=== PATIENT | male | born 1955 | race Caucasian/White ===

== ENCOUNTER 2022-03-18 10:29 | Day surgery (SDC) | payer MEDICARE, MEDICAID ==
[~2022-03-18] VITALS: Ht 182.9 cm; Wt 139.6 kg
[~2022-03-18 10:29] MED LIST: ADV50250 IH; ALB0.5UD IH; ALBU8.5H4 IH; ATEN-169 PO; DEXL60CA3 PO; DIPH25CA83 PO; DOXY100T2 PO; GEMF600T89 PO; HYDR-3965 PO; LACT1CAP65 PO; LEVO100T PO; LORA1TAB PO; METF-436 PO; TRAM50TA2 PO
[2022-03-18 11:00] VITALS: BP 165/91
[2022-03-18] MEDS ORDERED: NITR0.4T48 SL (11:36)
[2022-03-18] MEDS ORDERED: DULA1.5P (11:37)
[2022-03-18] MEDS ORDERED: HYDR-3972 PO (11:38)
[2022-03-18] MEDS ORDERED: LOP12.5T PO (11:39)
[2022-03-18] MEDS ORDERED: SITA1TAB6 PO (11:39)
[2022-03-18] MEDS ORDERED: LISI10TA27 PO (11:40)
[2022-03-18] MEDS ORDERED: ALLO300T35 PO (11:40)
[2022-03-18] MEDS ORDERED: MIDAZolam 1 MG/ML 5ML VIAL ONE (12:01)
[2022-03-18] MEDS ORDERED: fentaNYL/PF 50MCG/1 ML 2ML syringe ONE (12:01)
[2022-03-18 14:10] VITALS: BP 119/71
[2022-03-18 14:20] VITALS: BP 115/91
[2022-03-18 14:30] VITALS: BP 164/80
== END 2022-03-18 15:05 | disposition home or self-care (01) ==
LOC: GI LAB 10:29
PROVIDERS: ATTEND Internal Medicine Gastroenterology
DX: Z12.11 Encounter for screening for malignant neoplasm of colon (principal); D12.2 Benign neoplasm of ascending colon; D12.0 Benign neoplasm of cecum; D12.3 Benign neoplasm of transverse colon; D12.5 Benign neoplasm of sigmoid colon; D12.8 Benign neoplasm of rectum; K57.30 Diverticulosis of large intestine without perforation or abscess without bleeding; K64.8 Other hemorrhoids; J44.9 Chronic obstructive pulmonary disease, unspecified; I10 Essential (primary) hypertension; Z86.010 Personal history of colon polyps; Z79.899 Other long term (current) drug therapy
CPT/HCPCS: 45380; 45385; 45390; 88305; 99153; C1773; G0500; J2250; J3010; J7030; Z7512; 45335; 99152; A4620

== ENCOUNTER 2022-04-26 15:59 | Inpatient (IN) | payer MEDICARE, MEDICAID ==
[~2022-04-26] VITALS: Ht 180.3 cm; Wt 139.5 kg
[~2022-04-26 15:59] MED LIST changes: +ALLO300T35 PO; -ATEN-169 PO; -DIPH25CA83 PO; -DOXY100T2 PO; +DULA1.5P SQ; -HYDR-3965 PO; +HYDR-3972 PO; -LACT1CAP65 PO; -LEVO100T PO; +LISI10TA27 PO; +LOP12.5T PO; -METF-436 PO; +NITR0.4T48 SL; +SITA1TAB6 PO; -TRAM50TA2 PO; +iohexol 350MG/ML 100ml bottle IV ONE
[2022-04-26 16:21] LABS: BASOPHILS % (AUTO) 0.6 % (0-1); EOSINOPHILS % (AUTO) 0.9 % (0-6); HEMATOCRIT 34.6 % (42.0-52.0); HEMOGLOBIN 11.6 g/dl (14.0-17.9); LYMPHOCYTES # (AUTO) 0.5 X10'3 (1.1-4.8); LYMPHOCYTES % (AUTO) 13.4 % (21-51); MEAN CORPUSCULAR HEMOGLOBIN 31.6 PG (27.0-31.0); MEAN CORPUSCULAR HGB CONC 33.7 g/dL (33.0-36.5); MEAN CORPUSCULAR VOLUME 93.8 FL (78-98); MEAN PLATELET VOLUME 8.1 FL (7.4-10.4); MONOCYTES # (AUTO) 0.5 X10'3 (0-0.9); MONOCYTES % (AUTO) 14.7 % (2-12); NEUTROPHILS # (AUTO) 2.6 X10'3 (1.8-7.7); NEUTROPHILS % (AUTO) 70.4 % (42-75); PLATELET COUNT 121 X10'3 (140-440); RED BLOOD COUNT 3.68 X10'6 (4.70-6.10); RED CELL DISTRIBUTION WIDTH 15.2 % (11.5-14.5); WHITE BLOOD COUNT 3.7 X10'3 (4.5-11.0)
[2022-04-26 16:33] LABS: ALANINE AMINOTRANSFERASE 61 U/L (12-78); ALBUMIN 3.5 G/DL (3.4-5.0); ALBUMIN/GLOBULIN RATIO 0.9 (1.1-1.5); ALKALINE PHOSPHATASE 168 IU/L (46-116); ANION GAP 10 (8-16); ASPARTATE AMINO TRANSFERASE 75 U/L (10-37); BILIRUBIN,TOTAL 0.9 MG/DL (0.1-1.0); BLOOD UREA NITROGEN 10 MG/DL (7-18); BUN/CREATININE RATIO 8.8 (5.4-32.0); CHLORIDE 101 MMOL/L (99-107); CREATININE 1.13 MG/DL (0.60-1.10); GLUCOSE 185 MG/DL (70-104); POTASSIUM 3.8 MMOL/L (3.5-5.1); SODIUM 134 MMOL/L (135-145); TOTAL CARBON DIOXIDE 22.7 MMOL/L (24-32); TOTAL PROTEIN 7.5 G/DL (6.4-8.2); eGFR 65 ML/MIN
[2022-04-26] MEDS ORDERED: normal saline 1000ML IV soln IV ONE (17:35)
[2022-04-26 18:18] LABS: D-DIMER 2.12 MG/L FEU (0-0.50)
[2022-04-26] MEDS ORDERED: MESSAGE TO NURSING PO NR (20:00)
--- NOTE | 2022-04-26 20:38 | NUR ---
PT WAS ROAD TESTED WITH SPO2 MONITOR. PT REPORTED FEELING SOB. SPO2 REMAINED AT 97% AND ABOVE ON RA WHILE WALKING. DR DONOVAN AWARE.
--- NOTE | 2022-04-26 21:29 | NUR ---
ROUNDED ON PT. HE REPORTS FEELING BETTER.
--- NOTE | 2022-04-26 22:47 | NUR ---
PT REQUESTED A WARM BLANKET. PT HAS DONNED HOSPITAL GOWN AND HAS NO COMPLAINTS.
[2022-04-26] MEDS ORDERED: HYDROcodone/acetaminophen 10/325mg tab PO ONE (23:30)
--- NOTE | 2022-04-26 23:31 | NUR ---
SPOKE TO DR SANCHEZ OVER THE PHONE PT IS REQUESTING PAIN MEDS. DR SANCHEZ GAVE T.O. FOR 10 MG NORCO. ORDER REPEATED BACK FOR ACCURACY AND PLACED.
--- NOTE | 2022-04-26 23:52 | NUR ---
RELIEVING RN FOR BREAK, PT IS RESTING QUIETLY ON GURNEY, RESP EVEN AND UNLABORED, WAITING FOR BED ASSIGNMENT AND ADMIT ORDERS, MEDICATED FOR CHRONIC LOWER BACK PAIN THAT RADIATES TO BILATERAL LEGS, GAVE PT PITCHER OF ICE WATER, EMPTIED URINAL OF 800ML YELLOW URINE
[2022-04-26] MEDS ORDERED: dextrose 50%-water 50ml dispensing syringe IV PRN ×2 (23:55)
[2022-04-26] MEDS ORDERED: mag hydrox/Alum hydrox/simeth 30ml oral suspension PO PRN (23:55)
[2022-04-26] MEDS ORDERED: glucagon, human recombinant 1mg kit SUBCUT PRN (23:55)
[2022-04-26] MEDS ORDERED: diphenhydrAMINE 50 mg/ml inj IV PRN (23:55)
[2022-04-26] MEDS ORDERED: ondansetron 4mg rapidly disintigrating tab PO PRN (23:55)
[2022-04-26] MEDS ORDERED: MESSAGE TO PHARMACY PO ONE (23:55)
[2022-04-26] MEDS ORDERED: acetaminophen 650mg rectal suppository RC PRN (23:55)
[2022-04-26] MEDS ORDERED: diphenhydrAMINE 25mg capsule PO PRN (23:55)
[2022-04-26] MEDS ORDERED: DEXTROSE 15 GM of carb/4 tabs (each vial/BOTTLE has 4 tablets) PO PRN ×2 (23:55)
[2022-04-26] MEDS ORDERED: bisacodyl 10mg suppository rectal RC PRN (23:55)
[2022-04-26] MEDS ORDERED: morphine 2 MG/ML inj. syringe IV PRN ×2 (23:55)
[2022-04-26] MEDS ORDERED: magnesium hydroxide 30ml (MOM) UD suspension PO PRN (23:55)
[2022-04-26] MEDS ORDERED: ondansetron/PF 4mg/2ml inj IV PRN (23:55)
[2022-04-26] MEDS ORDERED: HYDROmorphone inj. 0.5 MG/0.5 ML DISP.SYRIN IV PRN (23:55)
[2022-04-26] MEDS ORDERED: acetaminophen 325mg tablet PO PRN ×2 (23:55)
[2022-04-27] MEDS ORDERED: ALBUTEROL INHALER 1 PUFF/90 MCG INHALation IH PRN ×2 (00:15→04:40)
[2022-04-27 00:31] LABS: HEMOGLOBIN A1C 7.7 % (4.5-6.2)
[2022-04-27 00:45] LABS: MAGNESIUM 1.6 MG/DL (1.5-2.4); PHOSPHORUS 3.1 MG/DL (2.3-4.5)
[2022-04-27] MEDS ORDERED: guaiFENesin/codeine phos 10ml UD oral syrup PO PRN (01:35)
--- NOTE | 2022-04-27 01:37 | NUR ---
SPOKE TO DR SANCHEZ PT IS REQUESTING COUGH MEDICATION THE COUGH IS NOW CAUSING RIB PAIN. DR SANCHEZ GAVE T.O. FOR ROBITUSSIN AC 15 ML Q4 PRN FOR COUGH. ORDER REPEATED BACK FOR ACCURACY AND PLACED,.
[2022-04-27 02:30] LABS: BASOPHILS % (AUTO) 0.3 % (0-1); EOSINOPHILS % (AUTO) 0.5 % (0-6); HEMATOCRIT 32.9 % (42.0-52.0); HEMOGLOBIN 11.2 g/dl (14.0-17.9); LYMPHOCYTES # (AUTO) 0.7 X10'3 (1.1-4.8); LYMPHOCYTES % (AUTO) 21.5 % (21-51); MEAN CORPUSCULAR HEMOGLOBIN 32.4 PG (27.0-31.0); MEAN CORPUSCULAR HGB CONC 34.1 g/dL (33.0-36.5); MEAN CORPUSCULAR VOLUME 94.9 FL (78-98); MEAN PLATELET VOLUME 8.3 FL (7.4-10.4); MONOCYTES # (AUTO) 0.5 X10'3 (0-0.9); MONOCYTES % (AUTO) 16.5 % (2-12); NEUTROPHILS # (AUTO) 1.9 X10'3 (1.8-7.7); NEUTROPHILS % (AUTO) 61.2 % (42-75); PLATELET COUNT 108 X10'3 (140-440); RED BLOOD COUNT 3.46 X10'6 (4.70-6.10); RED CELL DISTRIBUTION WIDTH 15.6 % (11.5-14.5); WHITE BLOOD COUNT 3.2 X10'3 (4.5-11.0)
[2022-04-27 02:40] LABS: APTT 35 SECONDS (22-32); D-DIMER 1.71 MG/L FEU (0-0.50)
[2022-04-27 02:51] LABS: ALBUMIN 3.3 G/DL (3.4-5.0); ANION GAP 8 (8-16); BILIRUBIN,TOTAL 0.8 MG/DL (0.1-1.0); BLOOD UREA NITROGEN 9 MG/DL (7-18); BUN/CREATININE RATIO 8.8 (5.4-32.0); C-REACTIVE PROTEIN 2.16 MG/DL (0.0-0.5); CALCIUM 8.7 MG/DL (8.5-10.1); CHLORIDE 105 MMOL/L (99-107); CREATININE 1.02 MG/DL (0.60-1.10); GLUCOSE 152 MG/DL (70-104); POTASSIUM 4.1 MMOL/L (3.5-5.1); SODIUM 138 MMOL/L (135-145); TOTAL CARBON DIOXIDE 25.3 MMOL/L (24-32); TOTAL PROTEIN 7.1 G/DL (6.4-8.2); eGFR 73 ML/MIN
[2022-04-27 02:52] LABS: ALANINE AMINOTRANSFERASE 84 U/L (12-78); ALBUMIN/GLOBULIN RATIO 0.9 (1.1-1.5); ALKALINE PHOSPHATASE 140 IU/L (46-116); ASPARTATE AMINO TRANSFERASE 76 U/L (10-37); CHOL/HDL RATIO 4.2 (0.00-4.99); CHOLESTEROL 172 MG/DL (0-200); HDL CHOLESTEROL 41 MG/DL (35-60); LDL CHOLESTEROL 107 MG/DL (50-100); LIPASE 105 U/L (73-393); TRIGLYCERIDES 89 MG/DL (20-135)
--- NOTE | 2022-04-27 03:39 | NUR ---
SPOKE TO DR SANCHEZ PT REQUESTED A CPAP TO SLEEP HE USUALLY USES ONE AT NIGHT FOR HIS SLEEP APNEA.
--- NOTE | 2022-04-27 04:00 | NUR ---
RT SETTING UP CPAP FOR PT;
[2022-04-27 04:26] LABS: URINE AMPHETAMINE SCREEN NEGATIVE (Neg); URINE BARBITUATE SCREEN NEGATIVE (Neg); URINE BENZODIAZEPINES SCREEN NEGATIVE (Neg); URINE CANNABINOID SCREEN NEGATIVE (Neg); URINE COCAINE SCREEN NEGATIVE (Neg); URINE METHADONE SCREEN NEGATIVE (Neg); URINE OPIATE SCREEN POSITIVE (Neg); URINE PHENCYCLIDINE SCREEN NEGATIVE (Neg)
--- NOTE | 2022-04-27 04:32 | NUR ---
SPOKE TO DR SANCHEZ PT'S BP IS STARTING TO TREND UP AND PT NOTED HE WASN'T ABLE TO TAKE HIS NORMAL NIGHT TIME MEDS HE IS IN THE HOSPITAL. MED RECONCILIATION IS COMPLETE. DR SANCHEZ REPORTED HE WILL GO OVER PT'S MEDICATIONS AND PLACE ORDERS.
[2022-04-27] MEDS ORDERED: LORazepam 1 MG tablet PO PRN (04:40)
--- NOTE | 2022-04-27 06:39 | NUR ---
RN REMOVED THIS PATIENT'S CPAP MASK AT PT'S REQUEST. HE IS NOW ON ROOM AIR, 02 SAT IS 100%. IN NO FORM OF DISTRESS. DR SOTO MADE AWARE OF PT'S ELEVATED BP. HE IS DUE FOR SOME AM MEDS. WILL ADMINST CRUZITO. MONITORING ONGOING
[2022-04-27] MEDS: gemfibrozil 600mg tablet PO SCH ×2 (08:00→21:58)
[2022-04-27] MEDS: furosemide 10 MG/1 ML 10ml inj IV SCH (09:28)
[2022-04-27] MEDS: azithromycin/NS 500mg/250ml 250 ML IV SCH (09:29)
[2022-04-27] MEDS: allopurinol 300 MG tablet PO SCH (09:29)
[2022-04-27] MEDS: docusate sod 100mg capsule PO SCH ×2 (09:29→21:59)
[2022-04-27] MEDS: dexamethasone 4mg/ml inj IV SCH ×2 (09:29→21:59)
[2022-04-27] MEDS: enoxaparin 40mg/0.4ml syringe SUBCUT SCH ×2 (09:29→22:00)
[2022-04-27] MEDS: CefTRIAXone/D5W-Rocephin 1gm 50 ML IV SCH (09:30)
[2022-04-27] MEDS: metoprolol tartrate 25mg tablet PO SCH ×2 (09:40→21:59)
[2022-04-27] MEDS: pantoprazole 40mg Tablet.DR PO SCH (09:40)
[2022-04-27] MEDS: lisinopril 10 MG tablet PO SCH (09:40)
[2022-04-27] MEDS: MESSAGE TO NURSING PO SCH (09:41)
--- NOTE | 2022-04-27 10:50 | NUR ---
THIS IS MY 3RD CALL TO PCU TO GIVE REPORT ON PT TRANSFER TO 3009, "PRIMARY RN IS BUSY WITH MD AND WILL CALL ME BACK".
--- NOTE | 2022-04-27 11:19 | NUR ---
Student documentation: I have reviewed and agree with all interventions, assessments performed and documented by MILAD FELIPE.
[2022-04-27 12:30] VITALS: BP 158/77
--- NOTE | 2022-04-27 18:30 | NUR ---
Patient in room PCU 3009. I have received report from ASHLEE and had the opportunity to ask questions and assume patient care.
--- NOTE | 2022-04-27 18:40 | NUR ---
Problems reprioritized. Patient report given, questions answered & plan of care reviewed with MILAD ALLEN.
[2022-04-27 19:00] VITALS: BP 139/68
[2022-04-27] MEDS: insulin Lispro (HumaLOG) vial - multi-dose SQ SCH (19:14)
[2022-04-27] MEDS ORDERED: insulin glargine (Lantus) pen - multi-dose SQ SCH (21:00)
--- NOTE | 2022-04-27 21:56 | NUR ---
AMMENDMENT TO LANTUS DOCUMENTATION: BLOOD GLUCOSE 206, NOT 205.
[2022-04-27 22:00] VITALS: BP 161/79
[2022-04-28 03:00] VITALS: BP 132/83
--- NOTE | 2022-04-28 06:20 | NUR ---
Problems reprioritized. Patient report given, questions answered & plan of care reviewed with KARON.
--- NOTE | 2022-04-28 06:26 | NUR ---
Patient in room PCU 3009. I have received report from Nighat STINSON and had the opportunity to ask questions and assume patient care.
[2022-04-28 06:38] LABS: BASOPHILS % (AUTO) 0.3 % (0-1); EOSINOPHILS % (AUTO) 0 % (0-6); HEMOGLOBIN 12.5 g/dl (14.0-17.9); LYMPHOCYTES # (AUTO) 0.7 X10'3 (1.1-4.8); LYMPHOCYTES % (AUTO) 18.6 % (21-51); MEAN CORPUSCULAR HEMOGLOBIN 32.1 PG (27.0-31.0); MEAN CORPUSCULAR HGB CONC 33.6 g/dL (33.0-36.5); MEAN CORPUSCULAR VOLUME 95.5 FL (78-98); MEAN PLATELET VOLUME 7.9 FL (7.4-10.4); MONOCYTES # (AUTO) 0.2 X10'3 (0-0.9); NEUTROPHILS # (AUTO) 2.6 X10'3 (1.8-7.7); NEUTROPHILS % (AUTO) 74.1 % (42-75); PLATELET COUNT 111 X10'3 (140-440); RED BLOOD COUNT 3.88 X10'6 (4.70-6.10); RED CELL DISTRIBUTION WIDTH 15.4 % (11.5-14.5); WHITE BLOOD COUNT 3.5 X10'3 (4.5-11.0)
[2022-04-28 06:57] LABS: ALANINE AMINOTRANSFERASE 90 U/L (12-78); ALBUMIN 3.5 G/DL (3.4-5.0); ALBUMIN/GLOBULIN RATIO 0.8 (1.1-1.5); ALKALINE PHOSPHATASE 133 IU/L (46-116); ANION GAP 10 (8-16); ASPARTATE AMINO TRANSFERASE 77 U/L (10-37); BILIRUBIN,TOTAL 0.8 MG/DL (0.1-1.0); BLOOD UREA NITROGEN 13 MG/DL (7-18); BUN/CREATININE RATIO 13.8 (5.4-32.0); CALCIUM 9.1 MG/DL (8.5-10.1); CHLORIDE 103 MMOL/L (99-107); CREATININE 0.94 MG/DL (0.60-1.10); GLUCOSE 213 MG/DL (70-104); POTASSIUM 4.1 MMOL/L (3.5-5.1); SODIUM 139 MMOL/L (135-145); TOTAL CARBON DIOXIDE 26.1 MMOL/L (24-32); eGFR 81 ML/MIN
[2022-04-28 07:01] VITALS: BP 130/62
[2022-04-28] MEDS: enoxaparin 40mg/0.4ml syringe SUBCUT SCH (08:00)
--- NOTE | 2022-04-28 09:56 | NUR ---
Diabetes consult: Pt w/ hx of DM A1c 7.7 though pt currently on Covid isolation. Written DM ed w/ RD contact info placed in pt chart. Pt admitted w/ sepsis and Covid per EMR. Currently on Carb control/Heart Healthy diet w/ 85% intake of first meal and 100% intake of second meal. Will provide double protein BID for satiety. LBM 8/5 receiving routine colace. Will continue to monitor. Recs; 1. Continue Carb control/Heart Healthy diet as tolerated 2. Double protein BIDBD 3. Bowel care per rx 4. Scaled wts Addendum: 04/28/22 at [address] Amended: Links added.
[2022-04-28] MEDS: MESSAGE TO NURSING PO SCH (10:00)
[2022-04-28] MEDS: insulin Lispro (HumaLOG) vial - multi-dose SQ SCH (10:23)
[2022-04-28] MEDS: CefTRIAXone/D5W-Rocephin 1gm 50 ML IV SCH (10:26)
[2022-04-28] MEDS: azithromycin/NS 500mg/250ml 250 ML IV SCH (10:27)
[2022-04-28] MEDS: lisinopril 10 MG tablet PO SCH (10:28)
[2022-04-28] MEDS: pantoprazole 40mg Tablet.DR PO SCH (10:28)
[2022-04-28 10:29] VITALS: BP_SYST 130
[2022-04-28] MEDS: metoprolol tartrate 25mg tablet PO SCH (10:29)
[2022-04-28] MEDS: docusate sod 100mg capsule PO SCH (10:29)
[2022-04-28] MEDS: allopurinol 300 MG tablet PO SCH (10:29)
[2022-04-28] MEDS: gemfibrozil 600mg tablet PO SCH (10:32)
[2022-04-28] MEDS: dexamethasone 4mg/ml inj IV SCH (10:32)
[2022-04-28] MEDS: furosemide 10 MG/1 ML 10ml inj IV SCH (10:35)
[2022-04-28] MEDS ORDERED: DEC4T PO (12:51)
--- NOTE | 2022-04-28 15:53 | NUR ---
Patient discharged home during shift. Patient IV taken out site showed minimal bleeding and canula was whole and intact upon discharge. Patient new medications and next dose of medications were verbally communicated, as well as need for isolation upon discharge. Patient left with wheelchair and was taken down to lobby and transported home via Taxi services.
== END 2022-04-28 15:00 | disposition home or self-care (01) | DRG 178 ==
LOC: ER 15:59 → ED HOLD 04-27 00:02 → PCU 3S 04-27 12:11
PROVIDERS: ADMIT Family Medicine; ATTEND Internal Medicine
PROC: B32T1ZZ Computerized Tomography (CT Scan) of Left Pulmonary Artery using Low Osmolar Contrast (ICD-10-PCS; principal; 2022-04-26)
PROC: B3201ZZ Computerized Tomography (CT Scan) of Thoracic Aorta using Low Osmolar Contrast (ICD-10-PCS; 2022-04-26)
PROC: B32S1ZZ Computerized Tomography (CT Scan) of Right Pulmonary Artery using Low Osmolar Contrast (ICD-10-PCS; 2022-04-26)
DX: U07.1 COVID-19 (principal); I50.32 Chronic diastolic (congestive) heart failure; J44.1 Chronic obstructive pulmonary disease with (acute) exacerbation; N17.9 Acute kidney failure, unspecified; Z68.41 Body mass index [BMI] 40.0-44.9, adult; D64.9 Anemia, unspecified; D69.6 Thrombocytopenia, unspecified; E03.9 Hypothyroidism, unspecified; E11.65 Type 2 diabetes mellitus with hyperglycemia; E66.01 Morbid (severe) obesity due to excess calories; Z60.2 Problems related to living alone; E78.5 Hyperlipidemia, unspecified; G47.33 Obstructive sleep apnea (adult) (pediatric); G89.4 Chronic pain syndrome; M54.9 Dorsalgia, unspecified; F41.9 Anxiety disorder, unspecified; I11.0 Hypertensive heart disease with heart failure; K21.9 Gastro-esophageal reflux disease without esophagitis; K76.0 Fatty (change of) liver, not elsewhere classified; M10.9 Gout, unspecified; Z87.11 Personal history of peptic ulcer disease; Z87.19 Personal history of other diseases of the digestive system; Z87.891 Personal history of nicotine dependence; Z79.899 Other long term (current) drug therapy; Z56.0 Unemployment, unspecified
CPT/HCPCS: 36415; 71045; 71275; 80053; 80061; 80305; 82948; 83036; 83605; 83690; 83735; 83880; 84100; 84145; 84443; 84484; 85025; 85379; 85610; 85651; 85730; 86140; 87040; 87081; 87502; 87503; 87811; 93005; 93306; 94640; 94660; 94760; 99285; G0378; J0456; J0696; J1100; J1650; J1815; J1940; J2270; J3490; J7030; Q9967

== ENCOUNTER 2022-07-31 14:01 | Emergency (ER) | payer MEDICARE, MEDICAID ==
[~2022-07-31] VITALS: Ht 180.3 cm; Wt 145.4 kg
[~2022-07-31 14:01] MED LIST changes: -ADV50250 IH; -ALB0.5UD IH; -ALBU8.5H4 IH; -iohexol 350MG/ML 100ml bottle IV ONE
[2022-07-31 14:08] VITALS: BP 165/76
== END 2022-07-31 14:46 | disposition home or self-care (01) ==
LOC: ER 14:02
DX: S63.501A Unspecified sprain of right wrist, initial encounter (principal); I10 Essential (primary) hypertension; J45.909 Unspecified asthma, uncomplicated; J44.9 Chronic obstructive pulmonary disease, unspecified; K21.9 Gastro-esophageal reflux disease without esophagitis; G89.29 Other chronic pain; M54.50 Low back pain, unspecified; Z56.0 Unemployment, unspecified; W19.XXXA Unspecified fall, initial encounter; Y93.89 Activity, other specified; Y92.89 Other specified places as the place of occurrence of the external cause; Y99.8 Other external cause status
CPT/HCPCS: 29125; 73110; 99283

== ENCOUNTER 2022-11-26 10:01 | Day surgery (SDC) | payer MEDICARE, MEDICAID ==
[~2022-11-26] VITALS: Ht 182.9 cm; Wt 144.0 kg
[2022-11-26] VITALS (7 sets, daily range): BP systolic 125–157; BP diastolic 58–78
[2022-11-26] MEDS ORDERED: normal saline 1,000 ML IV SCH (10:20)
[2022-11-26] MEDS ORDERED: diphenhydrAMINE 25mg capsule PO PRN (10:20)
[2022-11-26] MEDS ORDERED: LORazepam 0.5 MG tablet PO PRN (10:20)
[2022-11-26] MEDS ORDERED: FURO20TA4 PO (11:01)
[2022-11-26 11:22] LABS: BASOPHILS % (AUTO) 0.6 % (0-1); EOSINOPHILS # (AUTO) 0.2 X10'3 (0-0.9); EOSINOPHILS % (AUTO) 4.3 % (0-6); HEMOGLOBIN 12.2 g/dl (14.0-17.9); LYMPHOCYTES # (AUTO) 1.3 X10'3 (1.1-4.8); LYMPHOCYTES % (AUTO) 26.6 % (21-51); MEAN CORPUSCULAR HEMOGLOBIN 31.9 PG (27.0-31.0); MEAN CORPUSCULAR HGB CONC 33.9 g/dL (33.0-36.5); MEAN PLATELET VOLUME 8.3 FL (7.4-10.4); MONOCYTES # (AUTO) 0.5 X10'3 (0-0.9); MONOCYTES % (AUTO) 9.3 % (2-12); NEUTROPHILS # (AUTO) 2.9 X10'3 (1.8-7.7); NEUTROPHILS % (AUTO) 59.2 % (42-75); PLATELET COUNT 124 X10'3 (140-440); RED BLOOD COUNT 3.83 X10'6 (4.70-6.10); RED CELL DISTRIBUTION WIDTH 15.8 % (11.5-14.5); WHITE BLOOD COUNT 4.9 X10'3 (4.5-11.0)
[2022-11-26 11:35] LABS: ALBUMIN 3.5 G/DL (3.4-5.0); ANION GAP 9 (8-16); APTT 38 SECONDS (22-32); BLOOD UREA NITROGEN 11 MG/DL (7-18); BUN/CREATININE RATIO 11.1 (5.4-32.0); CALCIUM 9.5 MG/DL (8.5-10.1); CHLORIDE 101 MMOL/L (99-107); CREATININE 0.99 MG/DL (0.60-1.10); GLUCOSE 277 MG/DL (70-104); POTASSIUM 4.5 MMOL/L (3.5-5.1); SODIUM 135 MMOL/L (135-145); TOTAL CARBON DIOXIDE 24.9 MMOL/L (24-32); eGFR 76 ML/MIN
[2022-11-26] MEDS ORDERED: verapamil 2.5 mg/ml inj IV ONE (13:09)
[2022-11-26] MEDS ORDERED: nitroGLYCERIN-Tridil 50MG/D5W 250 ML IV ONE (13:09)
[2022-11-26] MEDS ORDERED: LIDOcaine 1% (10mg/ml) 2ml vial ONE (13:10)
[2022-11-26] MEDS ORDERED: iohexol 350MG/ML 100ml bottle IV ONE (13:10)
[2022-11-26] MEDS ORDERED: heparin 1,000unit/ml 10ml vial 10 ML ONE (13:10)
[2022-11-26] MEDS ORDERED: midazolam 1 mg/ML 2ml injection ONE (13:10)
[2022-11-26] MEDS ORDERED: fentaNYL/PF 50MCG/1 ML 2ML syringe ONE (13:10)
[2022-11-26] MEDS ORDERED: HYDROcodone/acetaminophen 10/325mg tab PO PRN (14:45)
[2022-11-26] MEDS ORDERED: HYDROcodone/acetaminophen 5mg/325mg tablet PO PRN (14:45)
== END 2022-11-26 16:30 | disposition home or self-care (01) ==
LOC: SSTAY O 10:01
PROVIDERS: ATTEND Student in an Organized Health Care Education/Training Program
DX: I20.9 Angina pectoris, unspecified (principal); E78.5 Hyperlipidemia, unspecified; E11.9 Type 2 diabetes mellitus without complications; J44.9 Chronic obstructive pulmonary disease, unspecified; G47.33 Obstructive sleep apnea (adult) (pediatric); I11.0 Hypertensive heart disease with heart failure; I50.9 Heart failure, unspecified; Z79.899 Other long term (current) drug therapy; Z79.84 Long term (current) use of oral hypoglycemic drugs; Z83.3 Family history of diabetes mellitus
CPT/HCPCS: 36415; 80048; 82948; 85025; 85610; 85730; 93005; 93458; 99152; A6258; C1769; C1894; J1644; J2250; J3010; J3490; J7030; Q0163; Q9967; 99153; A6402

== ENCOUNTER 2023-03-17 13:03 | Emergency (ER) | payer MEDICARE, MEDICAID ==
[~2023-03-17] VITALS: Ht 185.4 cm; Wt 140.0 kg
[~2023-03-17 13:03] MED LIST changes: +FURO20TA4 PO
[2023-03-17 13:24] VITALS: BP 157/69
== END 2023-03-17 16:07 | disposition home or self-care (01) ==
LOC: ER 13:03
DX: D17.24 Benign lipomatous neoplasm of skin and subcutaneous tissue of left leg (principal); I10 Essential (primary) hypertension; J44.9 Chronic obstructive pulmonary disease, unspecified; K21.9 Gastro-esophageal reflux disease without esophagitis; E11.9 Type 2 diabetes mellitus without complications; Z56.0 Unemployment, unspecified
CPT/HCPCS: 93971; 99284

== ENCOUNTER 2023-10-23 12:17 | Inpatient (IN) | payer MEDICARE, MEDICAID ==
[~2023-10-23] VITALS: Ht 182.9 cm; Wt 156.8 kg
[2023-10-23 14:06] LABS: BASOPHILS % (AUTO) 0.3 % (0-1); EOSINOPHILS # (AUTO) 0.2 X10'3 (0-0.9); EOSINOPHILS % (AUTO) 2.9 % (0-6); HEMATOCRIT 22.5 % (42.0-52.0); LYMPHOCYTES # (AUTO) 1.1 X10'3 (1.1-4.8); LYMPHOCYTES % (AUTO) 19.3 % (21-51); MEAN CORPUSCULAR HEMOGLOBIN 26.3 PG (27.0-31.0); MEAN CORPUSCULAR HGB CONC 31.2 g/dL (33.0-36.5); MEAN CORPUSCULAR VOLUME 84.3 FL (78-98); MEAN PLATELET VOLUME 8.4 FL (7.4-10.4); MONOCYTES # (AUTO) 0.6 X10'3 (0-0.9); NEUTROPHILS # (AUTO) 3.7 X10'3 (1.8-7.7); NEUTROPHILS % (AUTO) 66.5 % (42-75); PLATELET COUNT 133 X10'3 (140-440); RED BLOOD COUNT 2.67 X10'6 (4.70-6.10); RED CELL DISTRIBUTION WIDTH 16.2 % (11.5-14.5); WHITE BLOOD COUNT 5.6 X10'3 (4.5-11.0)
[2023-10-23 14:36] LABS: ALBUMIN 3.7 G/DL (3.4-5.0); ANION GAP 8 (8-16); BLOOD UREA NITROGEN 15 MG/DL (7-18); BUN/CREATININE RATIO 12.3 (10.0-20.0); CALCIUM 9.4 MG/DL (8.5-10.1); CHLORIDE 101 MMOL/L (99-107); CREATININE 1.22 MG/DL (0.60-1.10); GLUCOSE 192 MG/DL (70-104); POTASSIUM 4.5 MMOL/L (3.5-5.1); PRO BRAIN NATRIURETIC PEPTIDE 401 PG/ML (0-125); SODIUM 133 MMOL/L (135-145); TOTAL CARBON DIOXIDE 23.8 MMOL/L (24-32); eCRCL 65 ML/MIN; eGFR 59 ML/MIN
[2023-10-23] MEDS ORDERED: pantoprazole 40mg IV 80 MG in normal saline 100ml IV soln 100 ML IV ONE (15:30)
[2023-10-23] MEDS ORDERED: pantoprazole 40 MG vial IV ONE (16:00)
[2023-10-23] MEDS ORDERED: pantoprazole 40MG/NS 100ML BAG 100 ML IV ONE (16:00)
[2023-10-23 17:06] LABS: BILIRUBIN,URINE NEGATIVE (Neg); CLARITY,URINE CLEAR (Clear); COLOR,URINE STRAW (Yellow); GLUCOSE, URINE 500 mg/dl (Neg); KETONES,URINE NEGATIVE (Neg); LEUKOCYTE ESTERASE ,URINE NEGATIVE (Neg); NITRITES, URINE NEGATIVE (Neg); OCCULT BLOOD,URINE NEGATIVE (Neg); PROTEIN,URINE NEGATIVE (Neg); UROBILINOGEN,URINE 0.2 E.U/dL (0.2-1.0)
[2023-10-23 17:19] LABS: UA COLLECTION TYPE CLN CATCH MIDSTREAM
[2023-10-23 17:37] LABS: OCCULT BLOOD STOOL POSITIVE (Neg)
[2023-10-23] MEDS ORDERED: CefTRIAXone 2gm/D5W 50ml BAG 50 ML IV ONE (17:40)
[2023-10-23] MEDS ORDERED: potassium Cl 40MEQ/1/2NS 520ml 520 ML IV PRN (17:55)
[2023-10-23] MEDS ORDERED: magnesium Cl slow-release 64mg tablet PO PRN (17:55)
[2023-10-23] MEDS: normal saline 1000ml 1,000 ML IV SCH (17:55)
[2023-10-23] MEDS ORDERED: magnesium 2GM in 50ml NS 50 ML IV PRN (17:55)
[2023-10-23] MEDS ORDERED: acetaminophen 325mg tablet PO PRN ×2 (17:55)
[2023-10-23] MEDS ORDERED: potassium Cl 20 mEq SR tablet PO PRN ×2 (17:55)
[2023-10-23] MEDS ORDERED: magnesium 4gm in 100ml NS 100 ML IV PRN (17:55)
[2023-10-23] MEDS ORDERED: octreotide inj. 1,250 MCG in normal saline 250ml IV soln 243.75 ML IV SCH (18:00)
[2023-10-23] MEDS ORDERED: insulin Lispro (HumaLOG) vial - multi-dose SQ SCH (18:45)
[2023-10-23] MEDS ORDERED: MESSAGE TO PHARMACY PO ONE (18:45)
[2023-10-23] MEDS ORDERED: glucagon, human recombinant 1mg kit SUBCUT PRN (18:45)
[2023-10-23] MEDS ORDERED: albuterol 2.5 MG/3 ML nebule NEB PRN (18:45)
[2023-10-23] MEDS ORDERED: DEXTROSE 15 GM of carb/4 tabs (each vial/BOTTLE has 4 tablets) PO PRN ×2 (18:45)
[2023-10-23] MEDS ORDERED: dextrose 50%-water 50ml dispensing syringe IV PRN ×2 (18:45)
[2023-10-23 18:52] VITALS: BP 149/76; PULSE 88; RESP 17; TEMP 97.6
[2023-10-23 18:57] VITALS: BP 144/76; PULSE 88; RESP 17; TEMP 97.9
[2023-10-23 19:14] VITALS: BP 145/69; PULSE 91; RESP 17; TEMP 98
[2023-10-23 19:46] VITALS: BP 145/68; PULSE 92; RESP 15; TEMP 98.1
[2023-10-23] MEDS: furosemide 20 MG/2 ML vial IV SCH ×2 (20:04→20:34)
[2023-10-23] MEDS: pantoprazole 40MG/NS 100ML BAG 100 ML IV SCH (20:52)
[2023-10-23 20:53] VITALS: BP 154/69; PULSE 95; RESP 16; TEMP 97.7
[2023-10-23] MEDS: insulin glargine (Lantus) pen - multi-dose SQ SCH (21:00)
[2023-10-23] MEDS: octreotide inj. 500 MCG in normal saline 100ml IV soln 97.5 ML IV SCH (21:07)
[2023-10-24] VITALS (20 sets, daily range): BP systolic 121–178; BP diastolic 52–97; PULSE 72–90; RESP 13–20; TEMP 97.1–98.4; O2SAT 90–98
[2023-10-24] MEDS: pantoprazole 40MG/NS 100ML BAG 100 ML IV SCH ×5 (01:54→21:11)
[2023-10-24] MEDS: HYDROcodone/acetaminophen 5mg/325mg tablet PO PRN ×2 (01:59→23:26)
[2023-10-24] MEDS: morphine 2 MG/ML inj. syringe IV PRN ×2 (03:35→08:57)
[2023-10-24 07:13] LABS: APTT 30 SECONDS (22-32); BASOPHILS % (AUTO) 0.4 % (0-1); EOSINOPHILS # (AUTO) 0.2 X10'3 (0-0.9); EOSINOPHILS % (AUTO) 3.6 % (0-6); INR 1.1 INR; LYMPHOCYTES % (AUTO) 25.1 % (21-51); MEAN CORPUSCULAR HEMOGLOBIN 26.7 PG (27.0-31.0); MEAN CORPUSCULAR HGB CONC 31.8 g/dL (33.0-36.5); MEAN CORPUSCULAR VOLUME 84.1 FL (78-98); MEAN PLATELET VOLUME 8.5 FL (7.4-10.4); MONOCYTES # (AUTO) 0.4 X10'3 (0-0.9); MONOCYTES % (AUTO) 10.8 % (2-12); NEUTROPHILS # (AUTO) 2.5 X10'3 (1.8-7.7); NEUTROPHILS % (AUTO) 60.1 % (42-75); PLATELET COUNT 119 X10'3 (140-440); PROTHROMBIN TIME 11.4 SECONDS (9.0-12.0); RED BLOOD COUNT 2.58 X10'6 (4.70-6.10); RED CELL DISTRIBUTION WIDTH 16.6 % (11.5-14.5); WHITE BLOOD COUNT 4.2 X10'3 (4.5-11.0)
[2023-10-24 07:18] LABS: HEMATOCRIT 21.7 % (42.0-52.0); HEMOGLOBIN 6.9 g/dl (14.0-17.9)
[2023-10-24 07:26] LABS: ALANINE AMINOTRANSFERASE 32 U/L (12-78); ALBUMIN 3.3 G/DL (3.4-5.0); ALBUMIN/GLOBULIN RATIO 0.9 (1.1-1.5); ALKALINE PHOSPHATASE 148 IU/L (46-116); ANION GAP 8 (8-16); ASPARTATE AMINO TRANSFERASE 26 U/L (10-37); BILIRUBIN,DIRECT 0.3 MG/DL (0-0.3); BILIRUBIN,TOTAL 0.7 MG/DL (0.1-1.0); BLOOD UREA NITROGEN 12 MG/DL (7-18); BUN/CREATININE RATIO 9.7 (10.0-20.0); CALCIUM 8.9 MG/DL (8.5-10.1); CHLORIDE 104 MMOL/L (99-107); CREATININE 1.24 MG/DL (0.60-1.10); GLUCOSE 153 MG/DL (70-104); MAGNESIUM 1.8 MG/DL (1.5-2.4); PHOSPHORUS 3.3 MG/DL (2.3-4.5); POTASSIUM 4.4 MMOL/L (3.5-5.1); SODIUM 137 MMOL/L (135-145); TOTAL CARBON DIOXIDE 24.9 MMOL/L (24-32); TOTAL PROTEIN 6.8 G/DL (6.4-8.2); eCRCL 64 ML/MIN; eGFR 58 ML/MIN
[2023-10-24] MEDS: furosemide 20 MG/2 ML vial IV SCH ×2 (08:00→20:10)
[2023-10-24] MEDS ORDERED: KEN0.1O TOP (11:21)
[2023-10-24] MEDS ORDERED: nitroGLYCERIN 0.4mg SUBLingual tab SL PRN (11:50)
[2023-10-24] MEDS ORDERED: LORazepam 1 MG tablet PO PRN (11:50)
[2023-10-24] MEDS ORDERED: HYDROcodone/acetaminophen 10/325mg tab PO PRN (11:50)
[2023-10-24] MEDS: octreotide inj. 500 MCG in normal saline 100ml IV soln 97.5 ML IV SCH (12:16)
[2023-10-24] MEDS: ondansetron/PF 4mg/2ml inj IV PRN ×2 (14:38→20:42)
[2023-10-24] MEDS: ipratropium/albuterol 3ml nebule NEB SCH ×2 (15:00→20:54)
[2023-10-24] MEDS ORDERED: LIDOcaine Viscous 15ml cup ONE (16:22)
[2023-10-24] MEDS ORDERED: MIDAZolam 1 MG/ML 5ML VIAL ONE (16:27)
[2023-10-24] MEDS ORDERED: fentaNYL/PF 50MCG/1 ML 2ML syringe ONE (16:27)
[2023-10-24] MEDS ORDERED: metoprolol tartrate 25mg tablet PO SCH (20:00)
[2023-10-24] MEDS: carvedilol 6.25mg tablet PO SCH (20:10)
[2023-10-24] MEDS: insulin glargine (Lantus) pen - multi-dose SQ SCH (21:00)
[2023-10-25] VITALS (14 sets, daily range): BP systolic 132–154; BP diastolic 42–75; PULSE 72–84; RESP 12–22; TEMP 97–98.1; O2SAT 92–97
[2023-10-25] MEDS: pantoprazole 40MG/NS 100ML BAG 100 ML IV SCH ×3 (01:00→10:33)
[2023-10-25] MEDS: ipratropium/albuterol 3ml nebule NEB SCH ×4 (03:00→21:12)
[2023-10-25 07:12] LABS: BASOPHILS % (AUTO) 0.2 % (0-1); EOSINOPHILS # (AUTO) 0.2 X10'3 (0-0.9); HEMATOCRIT 26.3 % (42.0-52.0); HEMOGLOBIN 8.5 g/dl (14.0-17.9); LYMPHOCYTES # (AUTO) 0.8 X10'3 (1.1-4.8); LYMPHOCYTES % (AUTO) 15.2 % (21-51); MEAN CORPUSCULAR HEMOGLOBIN 27.5 PG (27.0-31.0); MEAN CORPUSCULAR HGB CONC 32.3 g/dL (33.0-36.5); MEAN CORPUSCULAR VOLUME 85.1 FL (78-98); MEAN PLATELET VOLUME 8.9 FL (7.4-10.4); MONOCYTES # (AUTO) 0.6 X10'3 (0-0.9); MONOCYTES % (AUTO) 10.2 % (2-12); NEUTROPHILS # (AUTO) 3.9 X10'3 (1.8-7.7); NEUTROPHILS % (AUTO) 71.4 % (42-75); PLATELET COUNT 121 X10'3 (140-440); RED BLOOD COUNT 3.09 X10'6 (4.70-6.10); RED CELL DISTRIBUTION WIDTH 16.5 % (11.5-14.5); WHITE BLOOD COUNT 5.5 X10'3 (4.5-11.0)
[2023-10-25 07:14] LABS: APTT 33 SECONDS (22-32); INR 1.1 INR; PROTHROMBIN TIME 11.4 SECONDS (9.0-12.0)
[2023-10-25 08:09] LABS: ALANINE AMINOTRANSFERASE 33 U/L (12-78); ALBUMIN 3.4 G/DL (3.4-5.0); ALBUMIN/GLOBULIN RATIO 0.9 (1.1-1.5); ALKALINE PHOSPHATASE 152 IU/L (46-116); ANION GAP 11 (8-16); ASPARTATE AMINO TRANSFERASE 29 U/L (10-37); BILIRUBIN,TOTAL 0.7 MG/DL (0.1-1.0); BLOOD UREA NITROGEN 11 MG/DL (7-18); BUN/CREATININE RATIO 8.8 (10.0-20.0); CALCIUM 9.1 MG/DL (8.5-10.1); CHLORIDE 104 MMOL/L (99-107); CREATININE 1.25 MG/DL (0.60-1.10); GLUCOSE 136 MG/DL (70-104); MAGNESIUM 1.7 MG/DL (1.5-2.4); PHOSPHORUS 3.3 MG/DL (2.3-4.5); POTASSIUM 4.3 MMOL/L (3.5-5.1); SODIUM 140 MMOL/L (135-145); TOTAL CARBON DIOXIDE 25.3 MMOL/L (24-32); TOTAL PROTEIN 7.2 G/DL (6.4-8.2); eCRCL 64 ML/MIN; eGFR 58 ML/MIN
[2023-10-25] MEDS: allopurinol 300 MG tablet PO SCH (10:30)
[2023-10-25] MEDS: lisinopril 10 MG tablet PO SCH (10:31)
[2023-10-25] MEDS: carvedilol 6.25mg tablet PO SCH ×3 (10:31→19:59)
[2023-10-25] MEDS: furosemide 20 MG/2 ML vial IV SCH ×2 (10:31→19:58)
[2023-10-25] MEDS: octreotide inj. 500 MCG in normal saline 100ml IV soln 97.5 ML IV SCH (10:32)
[2023-10-25] MEDS: hydrocortisone 1% cream 28gm TP SCH (12:43)
[2023-10-25 14:25] LABS: HEMATOCRIT 24.8 % (42.0-52.0); HEMOGLOBIN 7.9 g/dl (14.0-17.9); MEAN CORPUSCULAR HEMOGLOBIN 27.1 PG (27.0-31.0); MEAN CORPUSCULAR HGB CONC 31.8 g/dL (33.0-36.5); MEAN CORPUSCULAR VOLUME 85.3 FL (78-98); MEAN PLATELET VOLUME 8.9 FL (7.4-10.4); PLATELET COUNT 125 X10'3 (140-440); RED BLOOD COUNT 2.91 X10'6 (4.70-6.10); RED CELL DISTRIBUTION WIDTH 16.2 % (11.5-14.5); WHITE BLOOD COUNT 5.9 X10'3 (4.5-11.0)
[2023-10-25] MEDS: simethicone 125mg capsule PO SCH (18:18)
[2023-10-25] MEDS: normal saline 1000ml 1,000 ML IV SCH (19:58)
[2023-10-25] MEDS: pantoprazole 40mg Tablet.DR PO SCH (19:59)
[2023-10-25] MEDS ORDERED: simethicone 125mg capsule PO SCH (20:00)
[2023-10-25] MEDS: insulin glargine (Lantus) pen - multi-dose SQ SCH (21:00)
[2023-10-25] MEDS: HYDROcodone/acetaminophen 5mg/325mg tablet PO PRN (21:49)
[2023-10-26] VITALS (7 sets, daily range): BP systolic 131–152; BP diastolic 57–68; PULSE 73–91; RESP 16–19; TEMP 97.4–98.5; O2SAT 92–95
[2023-10-26] MEDS: ipratropium/albuterol 3ml nebule NEB SCH ×2 (03:26→09:26)
[2023-10-26] MEDS: hydrocortisone 1% cream 28gm TP SCH (08:00)
[2023-10-26] MEDS: pantoprazole 40mg Tablet.DR PO SCH (08:52)
[2023-10-26] MEDS: carvedilol 6.25mg tablet PO SCH (08:52)
[2023-10-26] MEDS: simethicone 125mg capsule PO SCH (08:52)
[2023-10-26] MEDS: allopurinol 300 MG tablet PO SCH (08:52)
[2023-10-26] MEDS: lisinopril 10 MG tablet PO SCH (08:53)
[2023-10-26] MEDS: furosemide 20 MG/2 ML vial IV SCH (09:11)
[2023-10-26] MEDS ORDERED: FURO20TA4 PO (10:19)
[2023-10-26] MEDS ORDERED: PANT-47 PO (10:19)
[2023-10-26] MEDS ORDERED: CARV6.253 PO (10:19)
[2023-10-26 10:52] LABS: BASOPHILS % (AUTO) 0.3 % (0-1); EOSINOPHILS # (AUTO) 0.2 X10'3 (0-0.9); EOSINOPHILS % (AUTO) 3.8 % (0-6); HEMATOCRIT 26.3 % (42.0-52.0); HEMOGLOBIN 8.3 g/dl (14.0-17.9); LYMPHOCYTES # (AUTO) 1.1 X10'3 (1.1-4.8); LYMPHOCYTES % (AUTO) 21.5 % (21-51); MEAN CORPUSCULAR HEMOGLOBIN 26.7 PG (27.0-31.0); MEAN CORPUSCULAR HGB CONC 31.4 g/dL (33.0-36.5); MEAN PLATELET VOLUME 8.5 FL (7.4-10.4); MONOCYTES # (AUTO) 0.5 X10'3 (0-0.9); MONOCYTES % (AUTO) 10.2 % (2-12); NEUTROPHILS # (AUTO) 3.4 X10'3 (1.8-7.7); NEUTROPHILS % (AUTO) 64.2 % (42-75); PLATELET COUNT 129 X10'3 (140-440); WHITE BLOOD COUNT 5.2 X10'3 (4.5-11.0)
[2023-10-26 11:25] LABS: INR 1.1 INR; PROTHROMBIN TIME 11.3 SECONDS (9.0-12.0)
[2023-10-26 11:34] LABS: ANION GAP 9 (8-16); BILIRUBIN,TOTAL 0.6 MG/DL (0.1-1.0); CHLORIDE 100 MMOL/L (99-107); POTASSIUM 3.7 MMOL/L (3.5-5.1); SODIUM 136 MMOL/L (135-145)
[2023-10-26 12:08] LABS: ALANINE AMINOTRANSFERASE 32 U/L (12-78); ALBUMIN 3.4 G/DL (3.4-5.0); ALBUMIN/GLOBULIN RATIO 0.9 (1.1-1.5); ALKALINE PHOSPHATASE 148 IU/L (46-116); ASPARTATE AMINO TRANSFERASE 23 U/L (10-37); CALCIUM 9.3 MG/DL (8.5-10.1); CREATININE 1.23 MG/DL (0.60-1.10); GLUCOSE 190 MG/DL (70-104); MAGNESIUM 1.7 MG/DL (1.5-2.4); PHOSPHORUS 2.9 MG/DL (2.3-4.5); TOTAL CARBON DIOXIDE 26.9 MMOL/L (24-32); TOTAL PROTEIN 7.3 G/DL (6.4-8.2); eCRCL 65 ML/MIN; eGFR 59 ML/MIN
[2023-10-26 12:23] LABS: BLOOD UREA NITROGEN 11 MG/DL (7-18); BUN/CREATININE RATIO 8.9 (10.0-20.0)
== END 2023-10-26 13:35 | disposition home or self-care (01) | DRG 432 ==
LOC: ER 12:18 → ED HOLD 17:58 → PCU 3S 23:45
PROVIDERS: ADMIT Internal Medicine; ATTEND Internal Medicine
PROC: 30233N1 Transfusion of Nonautologous Red Blood Cells into Peripheral Vein, Percutaneous Approach (ICD-10-PCS; 2023-10-23)
PROC: 06L38CZ Occlusion of Esophageal Vein with Extraluminal Device, Via Natural or Artificial Opening Endoscopic (ICD-10-PCS; principal; 2023-10-24)
DX: K74.60 Unspecified cirrhosis of liver (principal); I50.33 Acute on chronic diastolic (congestive) heart failure; I85.11 Secondary esophageal varices with bleeding; N17.0 Acute kidney failure with tubular necrosis; K76.6 Portal hypertension; N45.3 Epididymo-orchitis; F41.9 Anxiety disorder, unspecified; K21.9 Gastro-esophageal reflux disease without esophagitis; M54.9 Dorsalgia, unspecified; J44.9 Chronic obstructive pulmonary disease, unspecified; G89.29 Other chronic pain; G47.30 Sleep apnea, unspecified; D69.6 Thrombocytopenia, unspecified; K57.10 Diverticulosis of small intestine without perforation or abscess without bleeding; K31.89 Other diseases of stomach and duodenum; I11.0 Hypertensive heart disease with heart failure; I27.20 Pulmonary hypertension, unspecified; R16.2 Hepatomegaly with splenomegaly, not elsewhere classified; D64.9 Anemia, unspecified; E11.9 Type 2 diabetes mellitus without complications; Z79.899 Other long term (current) drug therapy; Z87.891 Personal history of nicotine dependence
CPT/HCPCS: 36415; 36430; 43244; 71045; 74176; 76870; 80048; 80053; 81003; 82248; 82272; 82948; 83036; 83735; 83880; 84100; 84484; 85025; 85027; 85610; 85730; 86885; 86900; 86901; 86920; 87081; 93005; 93306; 93976; 94640; 94760; 96365; 96376; 97161; 97530; 99152; 99153; 99291; A4620; C9113; G0378; J0696; J1815; J1940; J2250; J2270; J2354; J2405; J3010; J3490; J7030; J7040; P9016

== ENCOUNTER 2024-04-05 14:44 | Emergency (ER) | payer MEDICARE, MEDICAID ==
[~2024-04-05] VITALS: Ht 182.9 cm; Wt 134.1 kg
[~2024-04-05 14:44] MED LIST changes: +CARV6.253 PO; -DEXL60CA3 PO; -DULA1.5P SQ; -GEMF600T89 PO; +KEN0.1O TOP; -LOP12.5T PO; +PANT-47 PO
[2024-04-05 15:56] VITALS: TEMP 98.1
[2024-04-05 17:01] VITALS: BP 129/57; PULSE 62; RESP 14; O2SAT 98
[2024-04-05 17:09] LABS: EOSINOPHILS # (AUTO) 0.1 X10'3 (0-0.9); HEMOGLOBIN 11.2 g/dl (14.0-17.9); LYMPHOCYTES # (AUTO) 0.9 X10'3 (1.1-4.8); MEAN CORPUSCULAR HEMOGLOBIN 31.3 PG (27.0-31.0); MONOCYTES # (AUTO) 0.3 X10'3 (0-0.9)
[2024-04-05 17:19] LABS: BASOPHILS % (AUTO) 0.4 % (0-1); EOSINOPHILS % (AUTO) 3.2 % (0-6); HEMATOCRIT 34.1 % (42.0-52.0); MEAN CORPUSCULAR HGB CONC 32.9 g/dL (33.0-36.5); MEAN CORPUSCULAR VOLUME 95.1 FL (78-98); MONOCYTES % (AUTO) 7.7 % (2-12); NEUTROPHILS # (AUTO) 2.3 X10'3 (1.8-7.7); NEUTROPHILS % (AUTO) 63.7 % (42-75); PLATELET COUNT 110 X10'3 (140-440); RED BLOOD COUNT 3.59 X10'6 (4.70-6.10); WHITE BLOOD COUNT 3.7 X10'3 (4.5-11.0)
[2024-04-05 17:26] LABS: ALBUMIN 3.6 G/DL (3.4-5.0); ANION GAP 7 (8-16); BLOOD UREA NITROGEN 13 MG/DL (7-18); BUN/CREATININE RATIO 11.1 (10.0-20.0); C-REACTIVE PROTEIN 0.15 MG/DL (0.0-0.5); CALCIUM 9.6 MG/DL (8.5-10.1); CHLORIDE 105 MMOL/L (99-107); CREATININE 1.17 MG/DL (0.60-1.10); GLUCOSE 93 MG/DL (70-104); POTASSIUM 3.6 MMOL/L (3.5-5.1); SODIUM 140 MMOL/L (135-145); TOTAL CARBON DIOXIDE 28.1 MMOL/L (24-32); eCRCL 67 ML/MIN; eGFR 62 ML/MIN
[2024-04-05] MEDS ORDERED: CEPH-585 PO (17:47)
== END 2024-04-05 18:03 | disposition home or self-care (01) ==
LOC: ER 14:46
DX: R60.0 Localized edema (principal); M79.604 Pain in right leg; I10 Essential (primary) hypertension; J44.9 Chronic obstructive pulmonary disease, unspecified; K21.9 Gastro-esophageal reflux disease without esophagitis; E11.9 Type 2 diabetes mellitus without complications; Z79.899 Other long term (current) drug therapy
CPT/HCPCS: 36415; 80048; 84145; 85025; 86140; 99284

== ENCOUNTER 2025-01-06 17:30 | Emergency (ER) | payer MEDICARE, MEDICAID ==
[~2025-01-06] VITALS: Ht 180.3 cm; Wt 135.0 kg
[~2025-01-06 17:30] MED LIST changes: +CEPH-585 PO
[2025-01-06 18:01] LABS: BASOPHILS % (AUTO) 0.5 % (0-1); EOSINOPHILS # (AUTO) 0.1 X10'3 (0-0.9); EOSINOPHILS % (AUTO) 2.4 % (0-6); HEMATOCRIT 29.7 % (42.0-52.0); HEMOGLOBIN 9.3 g/dl (14.0-17.9); LYMPHOCYTES # (AUTO) 0.9 X10'3 (1.1-4.8); LYMPHOCYTES % (AUTO) 18.1 % (21-51); MEAN CORPUSCULAR HEMOGLOBIN 26.8 PG (27.0-31.0); MEAN CORPUSCULAR HGB CONC 31.3 g/dL (33.0-36.5); MEAN CORPUSCULAR VOLUME 85.9 FL (78-98); MONOCYTES # (AUTO) 0.5 X10'3 (0-0.9); MONOCYTES % (AUTO) 10.5 % (2-12); NEUTROPHILS # (AUTO) 3.5 X10'3 (1.8-7.7); NEUTROPHILS % (AUTO) 68.5 % (42-75); PLATELET COUNT 143 X10'3 (140-440); RED BLOOD COUNT 3.46 X10'6 (4.70-6.10); RED CELL DISTRIBUTION WIDTH 17.3 % (11.5-14.5); WHITE BLOOD COUNT 5.1 X10'3 (4.5-11.0)
[2025-01-06 18:12] LABS: ALANINE AMINOTRANSFERASE 31 U/L (12-78); ALBUMIN 3.5 G/DL (3.4-5.0); ALKALINE PHOSPHATASE 133 IU/L (46-116); ANION GAP 9 (8-16); ASPARTATE AMINO TRANSFERASE 18 U/L (10-37); BILIRUBIN,TOTAL 0.3 MG/DL (0.1-1.0); BLOOD UREA NITROGEN 18 MG/DL (7-18); BUN/CREATININE RATIO 13.6 (10.0-20.0); CALCIUM 9.2 MG/DL (8.5-10.1); CHLORIDE 104 MMOL/L (99-107); CREATININE 1.32 MG/DL (0.60-1.10); GLUCOSE 144 MG/DL (70-104); POTASSIUM 4.2 MMOL/L (3.5-5.1); SODIUM 138 MMOL/L (135-145); TOTAL CARBON DIOXIDE 24.8 MMOL/L (24-32); TOTAL PROTEIN 6.9 G/DL (6.4-8.2); eCRCL 58 ML/MIN; eGFR 54 ML/MIN
[2025-01-06 18:18] LABS: PRO BRAIN NATRIURETIC PEPTIDE 117 PG/ML (0-125)
[2025-01-06] MEDS: morphine 4 MG/ML inj SYRINge IV ONE (19:56)
[2025-01-06] MEDS: nitroGLYCERIN 0.4mg SUBLingual tab SL ONE (20:00)
[2025-01-06] MEDS: aspirin 81mg tab.chew PO ONE (20:04)
[2025-01-06] MEDS ORDERED: FURO-150 PO (22:20)
[2025-01-06] MEDS ORDERED: DULA1.5P SUBCUT (22:22)
[2025-01-06] MEDS ORDERED: METO25TA6 PO (22:26)
[2025-01-06] MEDS ORDERED: AMLO1CAP77 PO (22:28)
[2025-01-06] MEDS ORDERED: POTA-205 PO (22:29)
[2025-01-06] MEDS ORDERED: FERR325T28 PO (22:29)
[2025-01-06 23:54] VITALS: BP 140/60; PULSE 62; RESP 16; TEMP 97.4; O2SAT 100
== END 2025-01-07 00:02 | disposition home or self-care (01) ==
LOC: ER 17:31
DX: R07.89 Other chest pain (principal); E11.9 Type 2 diabetes mellitus without complications; E03.9 Hypothyroidism, unspecified; I10 Essential (primary) hypertension; F41.9 Anxiety disorder, unspecified; G47.30 Sleep apnea, unspecified; G89.29 Other chronic pain; M54.9 Dorsalgia, unspecified; J44.9 Chronic obstructive pulmonary disease, unspecified; J45.909 Unspecified asthma, uncomplicated; Z79.899 Other long term (current) drug therapy; Z56.0 Unemployment, unspecified
CPT/HCPCS: 36415; 71045; 80053; 83880; 84484; 85025; 93005; 96374; 99285; J2270

== ENCOUNTER 2025-03-26 13:40 | Observation (INO) | payer MEDICARE, MEDICAID ==
[~2025-03-26] VITALS: Ht 182.9 cm; Wt 137.7 kg
[~2025-03-26 13:40] MED LIST changes: -ALLO300T35 PO; +AMLO1CAP77 PO; +DULA1.5P SUBCUT; +FERR325T28 PO; +FURO-150 PO; -FURO20TA4 PO; -LISI10TA27 PO; +METO25TA6 PO; +POTA-205 PO
--- NOTE | 2025-03-26 15:29 | ELECTROCARDIOGRAPH REPORT ---
[facility] Test Date: 2025-03-26 Test Time: 15:28:35 Pat Name: OBDULIA WESTON Department: [facility]- Patient ID: [facility]-[id number] Room: Gender: M [employer] Developer: : 1955 Requested By: ROSEMARIE EL Order Number: [id number] Reading MD: Measurements Intervals [place] Rate: 65 P: 22 LA: 172 QRS: -31 QRSD: 141 T: 22 QT: 460 QTc: 479 Interpretive Statements Sinus rhythm Right bundle branch block Left ventricular hypertrophy Baseline wander in lead(s) II,III,aVF Please click the below link to view image of tracing.
--- NOTE | 2025-03-26 15:37 | Physician Documentation ---
History of Present Illness ~ Chief Complaint: Sore Throat Stated Complaint: SORE THROAT Time Seen by MD: 15:00 OK to notify your PCP?: Yes Primary Medical Doctor: Dr. Nix Source: patient Mode of Arrival: POV Exam Limitations: no limitations HPI 70 y/o male with c/o swollen tongue and soreness on left side of neck since waking up at noon today. Patient reports he woke up at 9:00 a.m. initially and took his benazepril which he has been on for years. He states when he woke up at 9:00 a.m. he felt like his tongue was slightly swollen but he figured that he must have bit his tongue when he was sleeping which he states has happened before and he went back to bed. When he woke up at noon he states then he realized that his tongue was more swollen than usual and he had pain on the left side of his neck as well. He reports painful swallowing. He denies fever, chills, shortness of breath. Medication Reconciliation Allergies: Coded Allergies: No Known Allergies (Unverified , 04/05/24) Scheduled Amlodipine Besylate/Benazepril 2.5/10 MG* (Amlodipine-Benazepril 2.5/10 MG*), 1 CAP PO DAILY, (Reported) Carvedilol (Carvedilol), 6.25 MG PO BID Cephalexin*Monohydrate* (Keflex*), 2 CAP PO BID Dulaglutide (Trulicity), 0.5 ML SUBCUT Q7D, (Reported) Ferrous Sulfate* (Ferrous Sulfate*), 1 TAB PO DAILY, (Reported) Furosemide* (Lasix*), 2 TAB PO BID, (Reported) Metoprolol Tartrate (Metoprolol Tartrate), 1 TAB PO Q12H, (Reported) Nitroglycerin (Nitroglycerin), 1 TAB SL UD, (Reported) Pantoprazole Sodium (PROTONIX tablet), 40 MG PO BID Potassium Chloride (Potassium Chloride), 10 MEQ PO BID, (Reported) Sitagliptin Phos/Metformin HCl (Janumet 50-1,000 mg Tablet), 1 TAB PO Q12H, (Reported) Sitagliptin Phos/Metformin HCl (Janumet 50-1,000 mg Tablet), 1 TAB PO Q12H, (Reported) Triamcinolone Acetonide 0.1% Crm* (Kenalog 0.1% Crm*), 1 APPLIC TOP DAILY, (Reported) Scheduled PRN Hydrocodone Bit/Acetaminophen (Hydrocodon-Acetaminophn 10-325 tablet), 1 TAB PO Q6H PRN for pain, (Reported) Lorazepam* (Ativan*), 1 MG PO TID PRN for for anxiety/agitation, (Reported) Past Medical History Past Medical History: Hypertension, Asthma, COPD, Sleep Apnea, GERD, GI Bleed, Peptic Ulcer Disease, Diabetes, Thyroid (unspecified), *MUSCULOSKELETAL*, Chronic Back Pain, Anxiety Past Surgical History: other Alcohol Use: None Drug Use: none Lives with: Alone Lives In: Home Occupation: unemployed, disabled Review of Systems All Other Systems at this time: Reviewed and Negative Physical Exam Vital Signs: Temperature: 97.8, Source: Oral, Heart Rate: 64, Respiratory Rate: 18, BP: 142/88, Pulse Oximetry: 99, Weight: 137.730 Physical Exam GENERAL: Alert, no acute distress. HEENT: NCAT, EOMI, PERRL, TONGUE IS EDEMATOUS, NO ERYTHEMA. TONGUE IS NOT TTP. FLOOR UNDERNEATH TONGUE IS EDEMATOUS MILD TTP IN THIS AREA. SWELLING LEFT S UBMANDIBULAR AREA LEFT ANTERIOR CERVICAL AREA WHICH IS MILDLY TTP. Moist oral mucosa. NECK: Supple, trachea midline. Left submandibular LAD. CARDIAC: Regular rate and rhythm, no murmurs, rubs, or gallops. PV: BRAWNY SKIN DISCOLORATION BILATERALLY, RIGHT LEG WORSE THAN LEFT. NO ERYTHEMA. PEDAL PULSES 2+. +RIGHT CALF TTP. RESPIRATORY: Equal breath sounds, clear to auscultation bilaterally, no respiratory distress. GASTROINTESTINAL: Non distended, soft, nontender, No guarding or rebound. MUSCULOSKELETAL: Normal range of motion, nontender, no swelling. NEUROLOGICAL: Awake, alert, and oriented x 3. SKIN: Warm/dry, no pallor, no rash. PSYCH: Alert and appropriate. Affect congruent with mood. Speech is clear. Good eye contact. Progress Progress Note VENOUS LE U/S: PENDING EXAM: CHEST XRAY NEGATIVE FOR ACUTE DISEASE EXAM: CT CT NECK SOFT TISSUES W/ IV CONTRAST INDICATION: swelling left side of neck with pain EXAM DATE: 03/26/2025 05:24 PM COMPARISON: None TECHNIQUE: Multiple axial CT images of the neck were obtained using bone algorithm. Axial and coronal reformatting was done. Bone and soft tissue windows were reviewed. Radiation Dose Information: CT Dose: CTDI volume is 54.49 mGy. Dose-length product is 1259.99 mGy*cm Findings: Nasopharynx and larynx are normal in caliber without evidence of focal mass. Asymmetry of the left oropharynx/ hypopharynx. No focal fluid collections or abnormal enhancement. Parotid, submandibular, and sublingual glands are within normal limits. The tongue is unremarkable. Thyroid gland within normal limits. No evidence of superior mediastinal lymphadenopathy. Cervical soft tissues within normal limits with no evidence of significant cervical lymphadenopathy. Musculoskeletal structures grossly unremarkable with no evidence of acute osseous abnormality. Impression: 1. Asymmetry of the left oropharynx/ hypopharynx. No focal fluid collections or abnormal enhancement. 2. If symptoms persist or worsen, recommend contrast-enhanced MRI for further evaluation. Results/Orders Results/Orders Orders - ROSEMARIE EL Culture Blood (03/26/25 15:18) Chest,Single View (03/26/25 15:40) Ct Neck Soft Tissues (03/26/25 15:18) General Nursing Order (03/26/25 15:18) Vl Venous (03/26/25 18:15) Page Hospitalist (03/26/25 ) Completed Orders - ROSEMARIE EL Cbc/Diff (03/26/25 15:18) Pt Inr (03/26/25 15:18) PTT (03/26/25 15:18) Lacticsepsis (03/26/25 15:18) Electrocardiogram (03/26/25 15:18) Chest,Single View (03/26/25 15:40) Procalcitonin (03/26/25 15:18) CMP (03/26/25 15:18) Ct Neck Soft Tissues (03/26/25 15:18) Dexamethasone Inj (Decadron 10mg/Ml Inj) (03/26/25 15:18) Iohexol 300mg/Ml 100ml Inj. (Omnipaque-3 (03/26/25 16:54) Strep A Rapid (03/26/25 17:14) Piperacillin/Tazo 3.375gm/50ml (Zosyn 3. (03/26/25 17:15) Medications Received in ER Medications (Trade) Dose Ordered Sig/Cesar Route PRN Reason Start Time Stop Time Status Last Admin Dose Admin (Decadron 10mg/ ml inj) 10 mg ONCE STAT IV 03/26/25 15:18 03/26/25 15:22 DC 03/26/25 16:13 10 MG Piperacillin/ Tazobactam/ Dextrose 50 ml @ 100 mls/hr ONCE ONCE IV 03/26/25 17:15 03/26/25 17:44 DC 03/26/25 17:41 100 MLS/HR Vital Signs 03/26/25 03/26/25 03/26/25 13:52 16:30 18:31 Temp 97.8 Pulse 64 62 64 Resp 18 16 16 B/P (MAP) 142/88 131/56 (81) 145/63 (90) Pulse Ox 99 100 99 O2 Flow Rate 0 0 Laboratory Tests Test 03/26/25 16:07 03/26/25 17:40 White Blood Count 5.0 Red Blood Count 3.22 L Hemoglobin 8.6 L Hematocrit 26.7 L Mean Corpuscular Volume 83.0 Mean Corpuscular Hemoglobin 26.8 L Mean Corpuscular Hemoglobin Concent 32.3 L Red Cell Distribution Width 17.6 H Platelet Count 141 Mean Platelet Volume 8.6 Neutrophils (%) (Auto) 72.8 Lymphocytes (%) (Auto) 16.7 L Monocytes (%) (Auto) 8.0 Eosinophils (%) (Auto) 2.2 Basophils (%) (Auto) 0.3 Neutrophils # (Auto) 3.7 Lymphocytes # (Auto) 0.8 L Monocytes # (Auto) 0.4 Eosinophils # (Auto) 0.1 Basophils # (Auto) 0.0 CBC Comment Prothrombin Time 10.8 INR International Normalized Ratio 1.1 Activated Partial Thromboplast Time 32 Coagulation Comments Sodium Level 136 Potassium Level 3.9 Chloride Level 102 Carbon Dioxide Level 27.1 Anion Gap 7 L Blood Urea Nitrogen 15 Creatinine 1.43 H Estimated GFR/1.73 m2 49 BUN/Creatinine Ratio 10.5 Glucose Level 104 Lactic Acid Level 1.0 Calcium Level 9.2 Total Bilirubin 0.5 Aspartate Amino Transf (AST/SGOT) 17 Alanine Aminotransferase (ALT/SGPT) 26 Alkaline Phosphatase 98 Total Protein 7.6 Albumin 3.7 Globulin 3.9 Albumin/Globulin Ratio 0.9 L Procalcitonin < 0.05 Chemistry Comments Group A Streptococcus Rapid Positive H Microbiology Date/Time Source Procedure Growth Status 03/26/25 16:12 Blood Arm Right Blood Culture - Preliminary NEGATIVE (LESS THAN 24 HOURS) Resulted Medical Decision Making Throat Diff Dx: Considerations: Include: AIDS, Epiglottitis, Esophageal candidiasis, Hand foot mouth disease, Herpangina, Herpetic stomatitis, Herpes simplex, Infection mononucleosis, Immunodeficiency, Matias's angina, Peritonsillar abscess, Peritonsillar cellulitis, Pharyngitis-diphtheria, Pharyngitis-strepococcal, Pharyngitis-viral, Thrush, URI, Other Additional Comment ANGIOEDEMA IN DIFFERENTIAL CONSIDERING PATIENT'S TONGUE IS SWOLLEN, NO SORE THROAT, AND ON BENAZEPRIL DVT IN DIFFERENTIAL WITH PATIENT'S RIGHT LEG EDEMA AND CALF PAIN-U/S ORDERED Departure Time of Disposition: 18:37 Admitted to Inpatient Unit: to hospitalist Impression: Primary Impression: Tongue swelling Additional Impressions: Neck pain on left side Sore throat Right leg swelling Diabetes Qualified Codes: E11.42 - Type 2 diabetes mellitus with diabetic polyneuropathy Hypertension Qualified Codes: I10 - Essential (primary) hypertension Condition: Fair Additional Instructions: CONSIDERING CONCERN FOR POTENTIAL AIRWAY COMPROMISE DUE TO THE TONGUE SWELLING I RECOMMEND ADMISSION FOR MONITORING/OBSERVATION OVERNIGHT. PATIENT HAS NO EVIDENCE FOR ABSCESS OF CT SCAN. PATIENT STATES HE FEELS BETTER SINCE GETTING THE DECADRON BUT WOULD STILL BENEFIT FROM ADMISSION FOR MONITORING PATIENT COULD EASILY RELAPSE AND SWELLING RETURN SINCE AT THIS POINT IT IS UNCLEAR WHAT IS CAUSING IT. HE IS ON BENAZEPRIL. Referrals: NO PRIMARY CARE PROVIDER (PCP) Education Educated: Patient Educated regarding: diagnosis, treatment, need for follow up Signature Scribe Signature: X Attestation: ROSEMARIE CHAMORRO Mar 26, 2025 15:37
[2025-03-26] MEDS: dexamethasone sod phosphate 10mg/ml inj IV STA (16:13)
[2025-03-26 16:31] LABS: MEAN PLATELET VOLUME 8.6 FL (7.4-10.4); RED CELL DISTRIBUTION WIDTH 17.6 % (11.5-14.5)
[2025-03-26 16:44] LABS: APTT 32 SECONDS (22-32); INR 1.1 INR
--- NOTE | 2025-03-26 16:47 | RADIOLOGY REPORT ---
CLINICAL INFORMATION: Sepsis. TECHNIQUE: Single AP portable chest radiograph was obtained. COMPARISON: DI CHEST,SINGLE VIEW on DOS: 01/06/25, DI CHEST,SINGLE VIEW on DOS: 10/23/23, CHEST,SINGLE V IEW on DOS: 04/26/22 FINDINGS: Lungs: Clear. Cardiac: Heart size is within normal limits. Pulmonary vasculature: Unremarkable. Mediastinum/janak: Unremarkable. Bones: No acute osseous abnormality identified. Other: No other significant findings. IMPRESSION: No evidence of acute disease in the chest.
[2025-03-26 16:50] LABS: CREATININE 1.43 MG/DL (0.60-1.10); TOTAL CARBON DIOXIDE 27.1 MMOL/L (24-32); eCRCL 54 ML/MIN; eGFR 49 ML/MIN
[2025-03-26] MEDS ORDERED: iohexol 300mg/ml 100ml inj. ONE (16:54)
[2025-03-26] MEDS: piperacillin/tazo 3.375gm/50ml 50 ML IV ONE (17:41)
[2025-03-26 17:59] LABS: STREP A SCREEN POSITIVE (Neg)
--- NOTE | 2025-03-26 18:15 | RADIOLOGY REPORT ---
EXAM: CT CT NECK SOFT TISSUES W/ IV CONTRAST INDICATION: swelling left side of neck with pain EXAM DATE: 03/26/2025 05:24 PM COMPARISON: None TECHNIQUE: Multiple axial CT images of the neck were obtained using bone algorithm. Axial and coronal reformatting was done. Bone and soft tissue windows were reviewed. Radiation Dose Information: CT Dose: CTDI volume is 54.49 mGy. Dose-length product is 1259.99 mGy*cm Findings: Nasopharynx and larynx are normal in caliber without evidence of focal mass. Asymmetry of the left oropharynx/ hypopharynx. No focal fluid collections or abnormal enhancement. Parotid, submandibular, and sublingual glands are within normal limits. The tongue is unremarkable. Thyroid gland within normal limits. No evidence of superior mediastinal lymphadenopathy. Cervical soft tissues within normal limits with no evidence of significant cervical lymphadenopathy. Musculoskeletal structures grossly unremarkable with no evidence of acute osseous abnormality. Impression: 1. Asymmetry of the left oropharynx/ hypopharynx. No focal fluid collections or abnormal enhancement . 2. If symptoms persist or worsen, recommend contrast-enhanced MRI for further evaluation.
[2025-03-26] MEDS ORDERED: ondansetron/PF 4mg/2ml inj IV PRN (19:30)
[2025-03-26] MEDS ORDERED: magnesium sulf-water 4G/100mL 100 ML IV PRN (19:30)
[2025-03-26] MEDS ORDERED: HYDROmorphone inj. 0.5 MG/0.5 ML DISP.SYRIN IV PRN (19:30)
[2025-03-26] MEDS ORDERED: potassium Cl 20 mEq SR tablet PO PRN ×2 (19:30)
[2025-03-26] MEDS ORDERED: magnesium Cl slow-release 64mg tablet PO PRN (19:30)
[2025-03-26] MEDS ORDERED: magnesium sulf-water 2g/50mL 50 ML IV PRN (19:30)
[2025-03-26] MEDS ORDERED: magnesium hydroxide 30ml (MOM) UD suspension PO PRN (19:30)
[2025-03-26] MEDS ORDERED: mag hydrox/Alum hydrox/simeth 30ml oral suspension PO PRN (19:30)
[2025-03-26] MEDS ORDERED: potassium Cl 40MEQ/1/2NS 520ml 520 ML IV PRN (19:30)
--- NOTE | 2025-03-26 19:30 | VASCULAR REPORT ---
CLINICAL HISTORY: Swelling and redness of the right calf TECHNIQUE: Color and duplex doppler imaging of the right lower extremity veins was performed. Vessel compression if possible was also performed. WID: COMPARISON: None FINDINGS: Contralateral left common femoral vein: Normal flow and phasicity. Right common femoral vein: Normal compressibility and flow. Right femoral vein: Normal compressibility and flow. Right popliteal vein: Normal compressibility and flow. Proximal calf veins are normally compressible. Subcutaneous edema in the right lower extremity. IMPRESSION: NO SONOGRAPHIC EVIDENCE FOR DEEP VENOUS THROMBOSIS IN THE RIGHT LOWER EXTREMITY VEINS. Subcutaneous edema in the right lower extremity.
[2025-03-26] MEDS: normal saline 1000ml 1,000 ML IV SCH (19:40)
[2025-03-26 19:56] LABS: PRO BRAIN NATRIURETIC PEPTIDE 87 PG/ML (0-125)
--- NOTE | 2025-03-26 19:59 | HISTORY AND PHYSICAL-Residence ---
History & Physical Providers to CC Resident Creating Document: YESI CROSS, RES ~ History of Present Illness Primary Medical Doctor: Dr. Nix Reason for Admit\Complaint: Swelling in the tongue History of Present Illness This is a 70-year-old male wheelchair-bound with a history of hypertension, diabetes, COPD, YUMIKO, asthma, GERD, chronic back pain presents to the ER with a chief complaint of swelling in the tongue. Patient states that he woke up today morning at 8:30 a.m. in noticed some swelling in his left side of the tongue, muffled voice and difficulty swallowing, throat pain. Patient's presumed that he might have bitten his tongue which he has done in the past and went back to sleep. Upon waking up the patient's symptoms did not improve and the throat pain has worsened and she decided to visit the ED. He denies any sick contacts or travel states that he has stayed in history look for the last three days. He denies any fever, chest pain, history of leaky valves. ED course: Patient's vitals are stable in the ER. No evidence of hypotension or increased respiratory rate or sepsis. Patient was requested to be admitted from the ER for observation status for possible impending airway overnight given the tongue swelling. CT scan shows no abscess but shows asymmetric swelling of the tongue which greatly improved with dexamethasone and antibiotics. Patient lives alone and uses electric wheelchair to ambulate. He recently had a stress test three months ago for chest pain which was negative. Patient states that he can not take a taxi home due to his wheelchair. He also states and busos are not available on Sundays. Patient needs transport tomorrow in order to go home. Allergies: Coded Allergies: No Known Allergies (Unverified , 04/05/24) Home Medications Home Medications Active Keflex* (Cephalexin HCl) 500 Mg Capsule 2 Cap PO BID PROTONIX tablet (Pantoprazole Sodium) 40 Mg Tablet.dr 40 Mg PO BID 30 Days Carvedilol 6.25 Mg Tablet 6.25 Mg PO BID 30 Days Reported Ferrous Sulfate* (Ferrous Sulfate) 325 Mg Tablet 1 Tab PO DAILY Potassium Chloride 10 Meq Tab.prt.sr 10 Meq PO BID Amlodipine-Benazepril 2.5/10 MG* (Amlodipine/Benazepril HCl) 2.5 Mg/10 Mg Capsule 1 Cap PO DAILY 30 Days Metoprolol Tartrate 25 Mg Tablet 1 Tab PO Q12H 30 Days Trulicity (Dulaglutide) 1.5 Mg/0.5 Ml Pen.injctr 0.5 Ml SUBCUT Q7D 28 Days Janumet 50-1,000 mg Tablet (Sitagliptin Phos/Metformin HCl) 50 Mg-1,000 Mg Tablet 1 Tab PO Q12H 30 Days Lasix* (Furosemide) 20 Mg Tablet 2 Tab PO BID Kenalog 0.1% Crm* (Triamcinolone Acetonide) 1 Applic Tube 1 Applic TOP DAILY 10 Days Janumet 50-1,000 mg Tablet (Sitagliptin Phos/Metformin HCl) 1 Each Tablet 1 Tab PO Q12H Hydrocodon-Acetaminophn 10-325 tablet (Acetaminophen/Hydrocodone Bitart) 1 Each Tablet 1 Tab PO Q6H PRN Nitroglycerin 0.4 Mg Tab.subl 1 Tab SL UD 1st sign of attack; may repeat every 5 mins; if pain persists after 3 in 15 min, medical attention is recommended Ativan* (Lorazepam) 1 Mg Tablet 1 Mg PO TID PRN Past Medical History Past Medical History Hypertension, Asthma, COPD, Sleep Apnea, GERD, GI Bleed, Peptic Ulcer Disease, Diabetes, Thyroid (unspecified), Chronic Back Pain, Anxiety Past Social History Social History Comment Currently non-smoker, ex-smoker, history of alcohol use present before 2008. Patient lives by himself able to ambulate with the help of a cane. For short distance he use the cane and for longer distance he uses electric wheelchair. Smoking: Quit greater than 1 year Alcohol Use: None Drug Use: None Lives with: Alone Lives In: Home Occupation: unemployed, disabled ROS All Other Systems: Reviewed and Negative ROS Reviewed in full and negative except for the pertinent positives in HPI Exam Vitals: Vital Signs Date Time Temp Pulse Resp B/P (MAP) Pulse Ox O2 Delivery O2 Flow Rate FiO2 03/26/25 19:08 16 03/26/25 18:31 64 99 0 03/26/25 13:52 97.8 General: General-patient not in any acute distress, alert awake oriented, chronically ill-appearing, morbidly obese HEENT-atraumatic normocephalic, neck supple without elevated JVD, no thyromegaly or carotid bruit. No lymphadenopathy bilaterally. Eyes-no icterus or pallor seen in eyes Chest-clear to auscultation bilaterally, breathing nonlabored no tachypnea, no wheezing, no crepitation, no crackles. Heart-S1-S2 normal, regular heart rate no murmur Abdomen bowel sounds positive on auscultation, soft nondistended , points of discomfort on palpation present over middle of his abdomen around umbilical area and lower belly. no guarding, no rigidity. Signs of soft tissue swelling present over lower abdomen . Skin no active skin rash Neurology-grossly intact, nonfocal alert awake oriented Extremity- 2 plus pedal edema over legs and thighs , able to move all 4 extremities Psychiatry - patient is not confused or agitated cooperated during physical examination Diagnostic Data Last Recorded Lab Results: 03/26/25 1607 03/26/25 1607 Diagnostic Data: Laboratory Tests Test 03/26/25 16:07 Prothrombin Time 10.8 SECONDS (9.0-12.0) INR International Normalized Ratio 1.1 INR Activated Partial Thromboplast Time 32 SECONDS (22-32) Coagulation Comments Advance Care Planning Advanced Care plannin - 30 Minutes (I spent a total of 17 minutes on reviewing various resuscitative measures/ ACP with the patient at the time of admission. The patient has decided on a full code status) Additional Plan Throat pain and tongue swelling Streptococcal throat infection Group A Streptococcus rapid test is positive in the ER. Follow up with the culture sensitivity results and blood cultures. Patient received IV Zosyn and IV dexamethasone 10 mg in the ER. Started on p.o. azithromycin 500 mg daily for streptococcal infection Lactic acid and procalcitonin are within normal limits. Right lower extremity pain and swelling History of varicose veins, lymphedema Venous Doppler shows Subcutaneous edema in the right lower extremity likely chronic. No evidence of DVT Normocytic hypochromic anemia Denies any melena or hematemesis Hemoglobin 8.6. Follow up with iron studies and occult stool. Started on IV Ferrlecit However this may be obscured due to patient taking oral iron at home Baseline hemoglobin few months ago was nine. Diabetes mellitus type 2 Follow up with the A1c. Currently on hyperglycemia protocol with 25 unit Lantus and Humalog insulin as needed. Morbid obesity BMI 41.2. May benefit from weight loss Hypertension Continue home medication amlodipine and beta navdeep after med rec CKD stage 3 likely diabetic nephropathy Creatinine 1.43, baseline creatinine is 1.35. History of CHF, not in exacerbation Chronic pain syndrome Continue home pain meds after med rec Additional comorbidities, gout, dyslipidemia, obstructive sleep apnea, GERD, history of peptic ulcer disease, hypothyroidism, colonic polyp, hepatic steatosis, ex-smoker, ex alcohol abuser, history of cirrhosis Code Status: Full code DVT Prophylaxis: Heparin Analgesia/Sedation: [place] PRN Lines/Tubes: PIV Gi Prophylaxis: None Nutrition: Carb controlled diet PT: Yes Prognosis: Guarded Disposition: Overnight observation status. Arrange transport to home in the a.m. Yesi Griffith MD Internal Medicine Resident PGY-2 I saw and discussed with the resident team Swelling is gone I agree with assessment and plan as documented Thank you Date of Service: Mar 26, 2025 Billing Provider: ELIZABETH JENKINS MD CROSS,YESI GRIFFITH, RES Mar 26, 2025 19:59 ELIZABETH JENKINS MD Mar 27, 2025 05:44
[2025-03-26] MEDS: docusate sod 100mg capsule PO SCH (20:00)
[2025-03-26] MEDS: K and/or MAG REPLACEMENT MC SCH (20:00)
[2025-03-26] MEDS ORDERED: DEXTROSE 15 GM of carb/4 tabs (each vial/BOTTLE has 4 tablets) PO PRN ×2 (20:10)
[2025-03-26] MEDS ORDERED: glucagon, human recombinant 1mg kit SUBCUT PRN (20:10)
[2025-03-26] MEDS ORDERED: dextrose 50%-water 50ml dispensing syringe IV PRN ×2 (20:10)
[2025-03-26 20:33] LABS: % IRON SATURATION 5 % (11-46)
[2025-03-26] MEDS: heparin, porcine 5000 units/ml vial SQ SCH (20:56)
[2025-03-26] MEDS: sodium ferric gluc complex inj 250 MG in normal saline 100ml IV soln 100 ML IV SCH (20:56)
[2025-03-26] MEDS: INSULIN LISPRO 100 UNIT/ML INSULN.PEN MULTI-DOSE SQ SCH (21:00)
[2025-03-26] MEDS: insulin glargine (Lantus) pen - multi-dose SQ SCH (21:13)
[2025-03-26 22:00] VITALS: BP 151/54; PULSE 88; RESP 22; TEMP 97.7; O2SAT 93
[2025-03-27 02:00] VITALS: RESP 17; O2SAT 98
[2025-03-27 06:00] VITALS: BP 136/76; PULSE 83; RESP 20; TEMP 97.6; O2SAT 96
[2025-03-27] MEDS: HYDROcodone/acetaminophen 10/325mg tab PO PRN (07:49)
[2025-03-27] MEDS ORDERED: [UNRECOGNIZED DRUG - OTHER] PO SCH (08:00)
[2025-03-27] MEDS ORDERED: BENAZEPRIL PO SCH (08:00)
[2025-03-27] MEDS ORDERED: non-formulary drug (Metoprolol Tartrate 1 TAB) PO SCH (08:00)
[2025-03-27] MEDS ORDERED: AMLODIPINE BESYLATE PO SCH (08:00)
[2025-03-27 10:00] VITALS: BP 143/79; PULSE 67; RESP 20; TEMP 97.6; O2SAT 98
[2025-03-27] MEDS ORDERED: HYDR50TA65 PO (10:31)
[2025-03-27] MEDS ORDERED: PENI-88 PO (12:13)
--- NOTE | 2025-03-27 18:12 | DISCHARGE SUMMARY ---
Discharge Summary Providers to CC Feels fine today no swelling of the tongue able to talk and swallow without any difficulty, angioedema of the tongue resolved asking to be discharged home ~ Discharge Summary Assessment Acute angioedema of the tongue Acute pharyngitis Chronic pain syndrome in exacerbation Anemia Diabetes mellitus type 2 poor control Morbid obesity hypertension poor control Chronic kidney disease stage 3 CHF diastolic chronic not in exacerbation Admission Diagnosis: Swelling in the throat Admission Diagnosis Comment: Acute angioedema of the tongue Acute pharyngitis Chronic pain syndrome in exacerbation Anemia Diabetes mellitus type 2 poor control Morbid obesity hypertension poor control Chronic kidney disease stage 3 CHF diastolic chronic not in exacerbation Hospital Course DATE OF ADMISSION: March 26, 2025 DATE OF DISCHARGE: March 27, 2025 Discharge Diagnosis\Comment: Acute angioedema of the tongue Acute pharyngitis Chronic pain syndrome in exacerbation Anemia Diabetes mellitus type 2 poor control Morbid obesity hypertension poor control Chronic kidney disease stage 3 CHF diastolic chronic not in exacerbation Operations\Procedures: Non Consultants: Non Complications: Non Condition on DC: Stable Discharge Summary: This is a 70-year-old male wheelchair-bound with a history of hypertension, diabetes, COPD, YUMIKO, asthma, GERD, chronic back pain presents to the ER with a chief complaint of swelling in the tongue. Patient states that he woke up today morning at 8:30 a.m. in noticed some swelling in his left side of the tongue, muffled voice and difficulty swallowing, throat pain. Patient's presumed that he might have bitten his tongue which he has done in the past and went back to sleep. Upon waking up the patient's symptoms did not improve and the throat pain has worsened and she decided to visit the ED. He denies any sick contacts or travel states that he has stayed in history look for the last three days. He denies any fever, chest pain, history of leaky valves.ED course: Patient's vitals are stable in the ER. No evidence of hypotension or increased respiratory rate or sepsis. Patient was requested to be admitted from the ER for observation status for possible impending airway overnight given the tongue swelling. CT scan shows no abscess but shows asymmetric swelling of the tongue which greatly improved with dexamethasone and antibiotics.Patient lives alone and uses electric wheelchair to ambulate. He recently had a stress test three months ago for chest pain which was negative. Patient states that he can not take a taxi home due to his wheelchair. He also states and busos are not available on Sundays. Patient needs transport tomorrow in order to go home. After admission patient was extensively evaluated treated, today he has no complaint able to talk and swallow freely, without any difficulty, asking to be discharged home he will be discharged in stable condition medication reconciled, follow-up PCP in the morning, return to emergency department if condition worsens, today on physical exam Vital signs, stable ,afebrile. Pulse Oximetry reflects adequate oxygenation. General: well developed, well nourished. Awake , alert, and oriented x4, resting comfortably in the bed, in no acute distress . Skin: Warm, dry, no pallor, no rash or petechiae. HEENT: Atraumatic, normocephalic, EOMI, anicteric sclera B; pink conjunctiva; PERRLA, normal oropharynx, moist oral and nasal mucosa. Tympanic membrane , nose , throat clear. Neck: Trachea midline. Supple, full range of motion, no JVD, bruit , hepatojugular reflex , lymphadenopathy or masses, or other lesions Cardiac: Regular rhythm, regular rate no murmurs, rubs, or gallops. Normal S1 and S2, no S3 noticed. PMI is normal. Respiratory: Equal breath sounds bilaterally, no tachypnea; lungs clear to ausc ultation bilaterally, no wheezing ,rub or rales, or crackles. Chest wall is symmetric and without deformity. No signs of trauma. Chest wall is nontender. No signs of respiratory distress. Resonance is normal upon percussion bilaterally. Gastrointestinal: Abdomen symmetric, non-distended, soft, non-tender, normal bowel sounds x4 quadrant, normoactive, no hepatosplenomegaly , no masses , no bruit, no flank pain bilaterally. No voluntary guarding, rebound, or rigidity. No tenderness to percussion. No pulsatile masses. Equal femoral pulses. No Greene's sign or McBurney point tenderness. Back; no CVA tenderness bilaterally, no deformities. Neck and back are without deformity as well. No tenderness noted on palpation of the spinous processes. Spinous processes are midline. Cervical, thoracic, and lumbar paraspinal muscles are not tender and are without spasm. : normal external genitalia, without lesions, swelling, masses or tenderness. Musculoskeletal: Extremities, normal range of motion, non-tender, muscle strength 5/5 x 4. Negative Homans signs bilaterally on lower extremity. Distal pulses full symmetrical, no clubbing, cyanosis , edema. Neurological: Speech is clear, alert, and oriented x 4. No motor or sensory deficit, deep tendon reflexes normal, cerebellar intact. Cranial nerves II-XII intact. Psych: Alert and or appropriate, normal affect. Vascular: Good distal pulses, which are equal x4; capillary refill less than 2 seconds. Lymphatic, no lymphadenopathy. *Problems/Diagnosis: (1) Symptomatic anemia Status: Acute (2) Leg pain Status: Acute (3) Leg edema Status: Acute (4) Diabetes Status: Acute (5) Tongue swelling Status: Acute Total Time Spent on D/C: > 30 Minutes Date of Service: Mar 27, 2025 Billing Provider: AIMEE SANCHEZ MD Common Visit Codes: 01212-PLE/OBS DISCH DAY >30min Problem Qualifiers (1) Diabetes: Qualified Codes: E11.42 - Type 2 diabetes mellitus with diabetic polyneuropathy AIMEE SANCHEZ MD Mar 27, 2025 18:12
== END 2025-03-27 13:22 | disposition home or self-care (01) ==
LOC: ER 13:41 → ED HOLD 19:30 → SUR 3N 22:08
PROVIDERS: ADMIT Internal Medicine; ATTEND Family Medicine
DX: T78.3XXA Angioneurotic edema, initial encounter (principal); J02.9 Acute pharyngitis, unspecified; I13.0 Hypertensive heart and chronic kidney disease with heart failure and stage 1 through stage 4 chronic kidney disease, or unspecified chronic kidney disease; E11.22 Type 2 diabetes mellitus with diabetic chronic kidney disease; N18.30 Chronic kidney disease, stage 3 unspecified; I50.32 Chronic diastolic (congestive) heart failure; D63.1 Anemia in chronic kidney disease; G89.4 Chronic pain syndrome; E11.65 Type 2 diabetes mellitus with hyperglycemia; E66.01 Morbid (severe) obesity due to excess calories; Z87.11 Personal history of peptic ulcer disease; Z79.899 Other long term (current) drug therapy; Z98.890 Other specified postprocedural states; X58.XXXA Exposure to other specified factors, initial encounter; Y93.89 Activity, other specified; Y92.89 Other specified places as the place of occurrence of the external cause; Y99.8 Other external cause status
CPT/HCPCS: 36415; 70487; 71045; 80053; 82728; 82948; 83036; 83540; 83605; 83735; 83880; 84132; 84145; 84466; 84484; 85025; 85610; 85730; 87040; 87081; 87880; 93005; 93971; 96361; 96365; 96367; 96372; 96375; 99285; G0378; J1100; J1644; J1815; J2543; J2916; J7030; Q9967; 83550

== ENCOUNTER 2025-07-23 10:56 | Emergency (ER) | payer MEDICARE, MEDICAID ==
[~2025-07-23] VITALS: Ht 182.9 cm; Wt 134.6 kg
[~2025-07-23 10:56] MED LIST changes: -CEPH-585 PO; +HYDR50TA65 PO
[2025-07-23 10:57] VITALS: TEMP 97.6
--- NOTE | 2025-07-23 11:03 | Physician Documentation ---
History of Present Illness ~ Stated Complaint: R LEG PAIN Time Seen by MD: 11:32 Primary Medical Doctor: Dr. Boyd JOSE This 70-year-old male presents to the emergency department for swelling and leaking of fluid to the right lower extremity. History of chronic pain syn drome, anemia, poorly controlled type 2 diabetes, morbid obesity, hypertension, CKD stage 3, CHF he denies chills or fever, chest pain or shortness of breath, he does not feel that the swelling in his leg is worse than usual, as he does admit to chronic peripheral edema. Tetanus witin 5 years: No (2019) Medication Reconciliation Allergies: Coded Allergies: No Known Allergies (Unverified , 04/05/24) Scheduled Amlodipine Besylate/Benazepril 2.5/10 MG* (Amlodipine-Benazepril 2.5/10 MG*), 1 CAP PO DAILY, (Reported) Carvedilol (Carvedilol), 6.25 MG PO BID Dulaglutide (Trulicity), 0.5 ML SUBCUT Q7D, (Reported) Ferrous Sulfate* (Ferrous Sulfate*), 1 TAB PO DAILY, (Reported) Furosemide* (Lasix*), 2 TAB PO BID, (Reported) Hydroxyzine HCl (Hydroxyzine HCl), 1 TAB PO Q8H Metoprolol Tartrate (Metoprolol Tartrate), 1 TAB PO Q12H, (Reported) Nitroglycerin (Nitroglycerin), 1 TAB SL UD, (Reported) Pantoprazole Sodium (PROTONIX tablet), 40 MG PO BID Potassium Chloride (Potassium Chloride), 10 MEQ PO BID, (Reported) Sitagliptin Phos/Metformin HCl (Janumet 50-1,000 mg Tablet), 1 TAB PO Q12H, (Reported) Sitagliptin Phos/Metformin HCl (Janumet 50-1,000 mg Tablet), 1 TAB PO Q12H, (Reported) Triamcinolone Acetonide 0.1% Crm* (Kenalog 0.1% Crm*), 1 APPLIC TOP DAILY, (Reported) Scheduled PRN Hydrocodone Bit/Acetaminophen (Hydrocodon-Acetaminophn 10-325 tablet), 1 TAB PO Q6H PRN for pain, (Reported) Lorazepam* (Ativan*), 1 MG PO TID PRN for for anxiety/agitation, (Reported) Past Medical History Past Medical History: Hypertension, Asthma, COPD, Sleep Apnea, GERD, GI Bleed, Peptic Ulcer Disease, Diabetes, Thyroid (unspecified), *MUSCULOSKELETAL*, Chronic Back Pain, Anxiety Past Surgical History: other Patient History: FH: heart failure FATHER Rectal cancer MOTHER Alcohol Use: None Drug Use: none Lives with: Alone Lives In: Home Occupation: unemployed, disabled Review of Systems ROS As stated above in the HPI, otherwise all systems are reviewed and negative. Physical Exam Physical Exam General: Alert, no apparent distress. Neck: Full range of motion. Respiratory: Lungs clear, no respiratory distress. Chest: No accessory muscle use. Cardiovascular: Regular rate and rhythm, no murmurs. Gastrointestinal: Soft, nontender, nondistended. Bowels sounds present. Extremities: Normal range of motion, no deformity. Neurologic: Oriented x4. Psychiatric: Normal mood and affect. Skin: Normal color, warm and dry. Venous stasis changes to both lower extremities with 1+ edema. Some serous fluid leaking from a couple of open areas around the right ankle. Progress Results/Orders Results/Orders Vital Signs 07/23/25 07/23/25 07/23/25 10:57 11:34 11:51 Temp 97.6 Pulse 65 61 Resp 18 16 16 B/P (MAP) 135/58 101/44 (63) Pulse Ox 99 98 O2 Flow Rate 0 0 Laboratory Tests Test 07/23/25 11:17 White Blood Count 5.9 Red Blood Count 3.09 L Hemoglobin 7.9 L Hematocrit 24.7 L Mean Corpuscular Volume 79.9 Mean Corpuscular Hemoglobin 25.6 L Mean Corpuscular Hemoglobin Concent 32.0 L Red Cell Distribution Width 17.5 H Platelet Count 192 Mean Platelet Volume 7.9 Neutrophils (%) (Auto) 75.9 H Lymphocytes (%) (Auto) 13.3 L Monocytes (%) (Auto) 9.3 Eosinophils (%) (Auto) 1.2 Basophils (%) (Auto) 0.3 Neutrophils # (Auto) 4.5 Lymphocytes # (Auto) 0.8 L Monocytes # (Auto) 0.5 Eosinophils # (Auto) 0.1 Basophils # (Auto) 0.0 CBC Comment Sodium Level 135 Potassium Level 4.3 Chloride Level 100 Carbon Dioxide Level 30.1 Anion Gap 5 L Blood Urea Nitrogen 13 Creatinine 1.39 H Estimated GFR/1.73 m2 51 BUN/Creatinine Ratio 9.4 L Calcium Level 9.2 Pro-B-Type Natriuretic Peptide 139 H Albumin 3.1 L Chemistry Comments Medical Decision Making Additional information obtaine: old records Findings Patient's last visit to this facility was on 03/26/2025, at which point he had an overnight stay for angioedema. History also notable for chronic pain syndrome, anemia, poorly controlled type 2 diabetes, morbid obesity, hypertension, CKD stage 3, CHF. General Diff Dx:Considerations: Include: Abrasion, Contusion, Fracture, Hematoma, Laceration, Malunion, Neurovascular injury, Open fracture, Sprain, Ulcer Knee Diff Dx:Considerations: Include: Other Ankle Diff Dx:Considerations: Include: Other Foot Diff Dx:Considerations: Include: Other Toe Diff Dx:Considerations: Include: Other Departure Time of Disposition: 11:58 Disposition: 01 HOME / SELF CARE / HOMELESS Impression: Primary Impression: Edema Additional Impressions: Cellulitis, leg Qualified Codes: L03.115 - Cellulitis of right lower limb Anemia Condition: Stable Discharge Instructions: Anemia, Cellulitis, Adult, Edema Additional Instructions: You have a slight worsening of your chronic anemia. Please follow up with your primary care, as your hemoglobin today was 7.9, but was 8.6 with your last hospitalization here. May have mild infection in the right leg. You also have a worsening of your chronic edema, elevate the leg and take the antibiotics. Follow up with your primary care within a week. Return if worse. Referrals: NO PRIMARY CARE PROVIDER (PCP) Prescriptions Cephalexin Monohydrate (Cephalexin) 500 Mg Capsule 1 CAP PO Q8H for 7 Days, #21 CAP Prov: VAUGHN HOPKINS NP 07/23/25 Education Educated: Patient Educated regarding: diagnosis, treatment, prognosis, need for follow up Signature Scribe Signature: x Attestation: The note accurately reflects work and decisions made by me.Vaughn Rubio NP 07/23/25 11:03 VAUGHN HOPKINS NP Jul 23, 2025 11:03
[2025-07-23 11:28] LABS: MEAN PLATELET VOLUME 7.9 FL (7.4-10.4); RED CELL DISTRIBUTION WIDTH 17.5 % (11.5-14.5)
[2025-07-23 11:50] LABS: CREATININE 1.39 MG/DL (0.60-1.10); PRO BRAIN NATRIURETIC PEPTIDE 139 PG/ML (0-125); TOTAL CARBON DIOXIDE 30.1 MMOL/L (24-32); eCRCL 56 ML/MIN; eGFR 51 ML/MIN
[2025-07-23] MEDS ORDERED: bacitracin 15gm ointment TP ONE (12:00)
[2025-07-23] MEDS ORDERED: CEPH500C2 PO (12:00)
[2025-07-23 12:26] VITALS: BP 113/55; PULSE 61; RESP 16; O2SAT 99
== END 2025-07-23 12:29 | disposition home or self-care (01) ==
LOC: ER 10:57
DX: L03.115 Cellulitis of right lower limb (principal); R60.9 Edema, unspecified; D64.9 Anemia, unspecified; E11.22 Type 2 diabetes mellitus with diabetic chronic kidney disease; I13.0 Hypertensive heart and chronic kidney disease with heart failure and stage 1 through stage 4 chronic kidney disease, or unspecified chronic kidney disease; N18.30 Chronic kidney disease, stage 3 unspecified; J44.9 Chronic obstructive pulmonary disease, unspecified; G47.30 Sleep apnea, unspecified; G89.4 Chronic pain syndrome; F41.9 Anxiety disorder, unspecified; K21.9 Gastro-esophageal reflux disease without esophagitis; Z87.11 Personal history of peptic ulcer disease; Z79.899 Other long term (current) drug therapy; Z56.0 Unemployment, unspecified; Z60.2 Problems related to living alone
CPT/HCPCS: 36415; 80048; 83880; 85025; 99283; A6258; A6449

== ENCOUNTER 2025-08-02 16:39 | Emergency (ER) | payer MEDICARE, MEDICAID ==
[~2025-08-02] VITALS: Ht 172.7 cm; Wt 139.0 kg
--- NOTE | 2025-08-02 18:22 | Physician Documentation ---
History of Present Illness ~ Chief Complaint: Wound Stated Complaint: ULCER R LEG Time Seen by MD: 18:21 Primary Medical Doctor: Dr. Nix HPI Patient presents to the emergency room for evaluation of right lower extremity wound. This has been going on for the past 10 days. No fevers. He states he has been placing CRUZITO over it but that has getting worse. Patient was history of diabetes. Tetanus within 5 years?: No (2018) Medication Reconciliation Allergies: Coded Allergies: No Known Allergies (Unverified , 08/02/25) Scheduled Amlodipine Besylate/Benazepril 2.5/10 MG* (Amlodipine-Benazepril 2.5/10 MG*), 1 CAP PO DAILY, (Reported) Carvedilol (Carvedilol), 6.25 MG PO BID Dulaglutide (Trulicity), 0.5 ML SUBCUT Q7D, (Reported) Ferrous Sulfate* (Ferrous Sulfate*), 1 TAB PO DAILY, (Reported) Furosemide* (Lasix*), 2 TAB PO BID, (Reported) Hydroxyzine HCl (Hydroxyzine HCl), 1 TAB PO Q8H Metoprolol Tartrate (Metoprolol Tartrate), 1 TAB PO Q12H, (Reported) Nitroglycerin (Nitroglycerin), 1 TAB SL UD, (Reported) Pantoprazole Sodium (PROTONIX tablet), 40 MG PO BID Potassium Chloride (Potassium Chloride), 10 MEQ PO BID, (Reported) Sitagliptin Phos/Metformin HCl (Janumet 50-1,000 mg Tablet), 1 TAB PO Q12H, (Reported) Sitagliptin Phos/Metformin HCl (Janumet 50-1,000 mg Tablet), 1 TAB PO Q12H, (Reported) Triamcinolone Acetonide 0.1% Crm* (Kenalog 0.1% Crm*), 1 APPLIC TOP DAILY, (Reported) Scheduled PRN Hydrocodone Bit/Acetaminophen (Hydrocodon-Acetaminophn 10-325 tablet), 1 TAB PO Q6H PRN for pain, (Reported) Lorazepam* (Ativan*), 1 MG PO TID PRN for for anxiety/agitation, (Reported) Discontinued Medications Cephalexin Monohydrate (Cephalexin), 1 CAP PO Q8H Discontinued Reason: Auto Discontinued Past Medical History Past Medical History: Hypertension, Asthma, COPD, Sleep Apnea, GERD, GI Bleed, Peptic Ulcer Disease, Diabetes, Thyroid (unspecified), *MUSCULOSKELETAL*, Chronic Back Pain, Anxiety Past Surgical History: other Patient History: FH: heart failure FATHER Rectal cancer MOTHER Alcohol Use: None Drug Use: none Lives with: Alone Lives In: Home Occupation: unemployed, disabled Review of Systems ROS All review of systems negative except as per HPI Physical Exam Vital Signs: Temperature: 98.2, Source: Temporal, Heart Rate: 72, Respiratory Rate: 18, BP: 141/61, Pulse Oximetry: 99, Weight: 139.000 Oxygen Flow Rate: 0 Physical Exam General: Patient is awake, alert, oriented x4 in no acute distress and well appearing.~ Head: Normocephalic and atraumatic. Eyes: Conjunctival normal. EOMI. PERRL. ENT: Mucous membranes moist. Neck: Supple, trachea is midline. Chest: Clear to auscultation bilaterally without rales, rhonchi, or wheezes. There is no accessory muscle use or retractions. Cardiac: RRR without murmurs, gallops, or rubs. Extremities: 3 cm x 3 cm ulcer to the anterior right bullock. No purulent drainage. Associated cellulitis extending up to knee. Able to move knee without limitations. Progress Results/Orders Results/Orders Orders - BRANNON AGGARWAL MD Dressing Orders (08/02/25 18:27) Completed Orders - BRANNON AGGARWAL MD Ondansetron Disint. Tablet (Zofran Odt T (08/02/25 18:30) Cephalexin Capsule (Keflex Capsule) (08/02/25 18:30) Doxycycline 100mg Capsule (Vibramycin 10 (08/02/25 18:27) Bacitracin Ointment (Bacitracin Ointment (08/02/25 18:30) Medications Received in ER Medications (Trade) Dose Ordered Sig/Cesar Route PRN Reason Start Time Stop Time Status Last Admin Dose Admin (Zofran ODT tablet) 4 mg ONCE ONCE PO 08/02/25 18:30 08/02/25 18:31 DC 08/02/25 18:39 4 MG (Keflex capsule) 500 mg ONCE ONCE PO 08/02/25 18:30 08/02/25 18:31 DC 08/02/25 18:39 500 MG (VIBRAMYCIN 100mg capsule) 100 mg ONCE STAT PO 08/02/25 18:27 08/02/25 18:30 DC 08/02/25 18:39 100 MG (bacitracin ointment) 1 applic ONCE ONCE TP 08/02/25 18:30 08/02/25 18:32 DC 08/02/25 18:40 1 APPLIC Vital Signs 08/02/25 16:43 Temp 98.2 Pulse 72 Resp 18 B/P (MAP) 141/61 Pulse Ox 99 O2 Flow Rate 0 Medical Decision Making Additional information obtaine: old records Findings Patient presents to the emergency room with right leg wound as per HPI. Patient was put on Keflex previously this is not done the trick. I will add doxycycline to Keflex with ER precautions regarding worsening of symptoms or fevers discussed. Differential Dx:Considerations: Include: Abscess, Cellulitis, Dressing change, Healing wound, Other Departure Disposition: 01 HOME / SELF CARE / HOMELESS Impression: Primary Impression: Wound cellulitis Condition: Stable Discharge Instructions: Cellulitis, Adult Referrals: NO PRIMARY CARE PROVIDER (PCP) Prescriptions Ondansetron 8mg ODT (Ondansetron Odt) 8 Mg Tab.rapdis 1 TAB PO Q6H for nausea/vomiting for 3 Days, #12 TAB 0 Refills Prov: BRANNON AGGARWAL MD 08/02/25 Doxycycline Monohydrate (Doxycycline Monohydrate) 100 Mg Capsule 1 CAP PO Q12H for 10 Days, #20 CAP Prov: BRANNON AGGARWAL MD 08/02/25 Cephalexin*Monohydrate* (Keflex*) 500 Mg Capsule 1 CAP PO Q12H for 10 Days, #20 CAP Prov: BRANNON AGGARWAL MD 08/02/25 Signature Scribe Signature: No scribe Attestation: The note accurately reflects work and decisions made by me.Brannon Aggarwal MD 08/02/25 18:57 BRANNON AGGARWAL MD Aug 02, 2025 18:22
[2025-08-02] MEDS: ondansetron 4mg rapidly disintigrating tab PO ONE (18:39)
[2025-08-02] MEDS: DOXYCYCLINE 100MG CAPSULE PO STA (18:39)
[2025-08-02] MEDS: bacitracin 15gm ointment TP ONE (18:40)
[2025-08-02] MEDS ORDERED: DOXY-460 PO (18:57)
[2025-08-02] MEDS ORDERED: CEPH-585 PO (18:57)
[2025-08-02] MEDS ORDERED: ONDA-245 PO (18:57)
[2025-08-02 19:07] VITALS: BP 140/60; PULSE 70; RESP 20; TEMP 98.6; O2SAT 99
== END 2025-08-02 19:09 | disposition home or self-care (01) ==
LOC: ER 16:39
DX: L03.115 Cellulitis of right lower limb (principal); E11.9 Type 2 diabetes mellitus without complications; G47.30 Sleep apnea, unspecified; G89.29 Other chronic pain; I10 Essential (primary) hypertension; J44.9 Chronic obstructive pulmonary disease, unspecified; K21.9 Gastro-esophageal reflux disease without esophagitis; F41.9 Anxiety disorder, unspecified; Z87.11 Personal history of peptic ulcer disease; Z79.899 Other long term (current) drug therapy; Z56.0 Unemployment, unspecified
CPT/HCPCS: 99284; A6258; A6455